=== PATIENT | male | born 1990 | race African-American/Black ===

== ENCOUNTER 2022-11-12 00:14 | Inpatient (IN) | payer OTHER, SELFPAY ==
[2022-11-12 00:30] VITALS: BP 143/87; PULSE 115; RESP 18
--- NOTE | 2022-11-12 01:56 | PC.ADMIT ---
Rodo is a 32 year old male. Admitted from [facility] for SI. Pt is a CV. 5 Minute safety checks with ULB. Pt initially presented to [facility] seeking detox but endorsed active SI with a plan to ingest medications. Pt was formerly at [facility] but was discharged to a custodial where he relapsed. Pt says his primary residence is with a friend out in [facility]. Pt is actively using alcohol, & crack/cocaine. Pt was placed on a CIWA Q4H. Pt has a history of several detox admission in the past. Tox screen positive for THC, Cocaine, & Barbiturates. Pt is a current everyday smoker and has requested nicotine replacement. History of SIB (head banging). Pt does not have a therapist but has a psychiatrist from [facility]. Pt oriented to the unit. Legals signed. Treatment plan & Admission completed.
[2022-11-12 06:00] VITALS: BP 144/82; PULSE 98; RESP 18; TEMP 36.9; O2SAT 95
[2022-11-12 06:49] VITALS: BMI 40.3
[2022-11-12] MEDS: LORazepam 1 MG TABLET PO ×3 (08:38→18:17)
[2022-11-12] MEDS: FLUoxetine HCl Oral Solution 20 MG/5 ML SOLUTION 10 MG PO (08:38)
--- NOTE | 2022-11-12 10:29 | HO.PSYADMNOT ---
HPI Date of Service: 11/12/22 Chief Complaint: SI Sources of Information: patient interviewed, chart reviewed and crisis/core team assessment reviewed HPI Subjective Notes: Rodriguez Warning and Conditional Voluntary Healthcare Proxy: No Guardianship: No Medical Problems Affecting Mental Status: No Narrative: I miss Angie . I want to go back 32 yo male, history of PTSD, ANTONIA, Alcohol Use disorder, recurrent major depression seen in transfer from [facility] for alcohol detox and needing to start over. Reports he has been on the street in [facility], in detox, CSS and homeless in the area and stuck on the streets, running into strangers. Reports his home to be [place], [place]. Reports he has just been approved for [facility] services, being assigned Yadiel Maldonado, a keycase assembler in [facility]. Reports he has been on the wait list for [facility] since May. Wanting to return to where he was raised as this area is not home for him. Reports relapse of alcohol, active detox with SI OTOLARYNGOLOGY NURSE. Wanting assistance to put his life back together and return to school. Past Psychiatric History: IP: [place]- a few times [facility] IP-~5 admits OP: Aurelia Arteaga-prescriber [phone] PHP/IOP: + history Med Trials-Abilify, Prozac, Trazodone, Hydroxyzine Medical Evaluation Reviewed: Hospitalist Tiffanie Pending [facility] Medical History (Updated 11/12/22 @ 14:22 by Mariana Paz, BRIDGETT) Alcohol use disorder, severe, dependence Recurrent major depression-severe Narrative: History of withdrawal seizures Family History: father-alcoholism mother-opiate addiction pt reports no mental illness history Social History: Born in [place], [place]. Pt was premature, born addicted. Placed in foster care and adopted by foster mother who of lung disease when pt was age 10. Pt has 2 older brothers, 1 older sister who currently is in [place] and is fighting cancer. Pt lived with sister after adoptive mother . Pt finished high school and has an AD from [employer] in [place]. He hopes to go to [employer] to continue to work on a BA Hx of playing percussion in bands. No children, no service, no current job-gets nuñez assistance and food stamps Legal: Denies, hx OUI Substance History: Alcohol use since 16 Hx acid, cocaine, crack Hx several detox admits, CSS admits Reports perceptual alterations when in withdrawal. Trauma History: Denies with affirmative history Diagnostics Vital Signs (24Hr): Vital Signs - 24 hr 11/12/22 00:30 11/12/22 06:00 Temperature 98.4 F Pulse Rate 115 H 98 Respiratory Rate 18 18 Blood Pressure 143/87 H 144/82 H Pulse Oximetry 95 Oxygen Delivery Method Room Air Room Air BMI result Body Mass Index 40.3 Meds/Allergies Allergies Allergies Allergy/AdvReac Type Severity Reaction Status Date / Time No Known Allergies Allergy Verified 11/12/22 00:18 Mental Status Exam Mental Status Exam Patient Appearance: Fatigued Patient Orientation: Person, Place, Time and Situation Level of Consciousness: Alert Patient Behavior: Appropriate and Talkative Mood Description: Depressed and Apprehensive Affect Description: Flat Patient Cognition Impaired: No Ability to Follow Directions: Fair Speech Pattern: Spontaneous Speech Memory Description: Intact Hallucinations: None Delusions: Not Present Perceptual Disturbances: Depersonalization and Derealization Thought Process: Rumination Thought Content: positive for Perseveration and positive for Suicidal Ideation Depressive Symptoms: Increased Anxiety, Difficulty Sleeping, Loss of Int. in Activity, Hopelessness, Increased Fatigue, Thoughts of /Suicide and Difficulty Concentrating Judgement: Fair Assessment & Plan Assessment & Plan (1) Recurrent major depression-severe: Status: Acute Code(s): F33.2 - Major depressive disorder, recurrent severe without psychotic features (2) Alcohol use disorder, severe, dependence: Status: Acute Code(s): F10.20 - Alcohol dependence, uncomplicated Plan 32 yo male, transfer from [facility] for detox from alcohol and treatment of depression. Plan: CIWA protocol with Lorazepam MVI, Thiamine, Folic Acid Continue Prozac, Trazodone, Hydroxizine Collateral Contacts Diagnostics Aftercare planning Patient educated on: therapeutic strategies Informed Consent: understands Reason for continued inpatient stay Substantial Risk for: harm to self and rapid decompensation Statement Statement: I have reviewed the history and physical and performed a pertinent examination on my patient. No changes have occurred unless specified. If the History and Physical was not performed prior to admission, the Hospitalist's service will be consulted for completing the admission physical. Time Spent With Patient Time: Total time managing care of this patient today ____ minutes.
--- NOTE | 2022-11-12 13:12 | HO.PM.IMCN ---
History of Present Illness Data of Consult Service Date: 11/12/22 Primary Care Provider: Unknown Physician HPI Reason for consult: Admission H&P Pt is a 32-year-old male with a PMH significant for?alcohol use disorder, the substance abuse disorder, anxiety, and depression who is admitted to [facility] psychiatry unit for increasing depression with SI with plan to overdose on prescription medications. Patient also has been using cocaine, acid and alcohol and actively seeking detox. Medical consult for admission H&P. ?Patient complains actively withdrawing: Cold sweats, nausea, mild tremors, anxiety. Yesterday reports occasional visual hallucinations, but today denies any audio or visual hallucinations. No headache, vomiting. Patient states he has been drinking 6-12 beers and 6+ shots of alcohol daily. Reports a history of alcohol withdrawal seizures when he tried detoxing on his own in the past. Initially presented to [facility] ED and was started on Ativan alcohol withdrawal protocol. Last drink was three days prior on 11/09/2022. Denies chest pain/pressure, palpitations. No SOB. Denies abdominal pain. Labs and EKG from [facility] reviewed, grossly unremarkable. Review of Systems Review of Systems: Cold sweats Nausea Mild tremors Increasing anxiety Visual hallucinations yesterday Denies chest pain/pressure, palpitations No shortness of breath Denies abdominal pain Yes all other systems are reviewed and are negative [facility] Medical History Alcohol use disorder, severe, dependence Recurrent major depression-severe Social History Household Members: Friend(s) Housing: Apartment Do you presently have visiting nurse or other home services: No Patient Tobacco Use Status: Current everyday Tobacco user Tobacco use type: Cigarette Smoked in Last 30 Days: Yes e-Cigarette/Vaping Use: Never Used Patient Interested in Nicotine Replacement: Yes Patient Given Instructions on How to Stop Smoking: Yes Date Education Initiated: 11/12/22 Second Hand Smoke Exposure: Yes Use of substances other than those prescribed or required for medical reasons: Yes Substance Use Type: Crack/Cocaine, Marijuana and Other Substance Use Type Other:: Barbituates Substance Use Frequency: Chronic Longstanding Last Used Substance: Days (ago) Last Used Substance Other:: Cocaine & Marijuana Currently Displaying Signs/Symptoms of Drug Intoxication Withdrawal: No Any prior treatment program specific to substance use: Yes Have you been hit, kicked, punched, or otherwise hurt by someone within the past year? If so, by whom?: No Do you feel safe in your current relationship?: No Current Relationship Is there a partner from a previous relationship who is making you feel unsafe now?: No Are you made to feel afraid or neglected: No Advance Directives: No Advance Directives Information Provided: Yes Advance Directives on File: No Do you have thoughts of harming others: None Do you have a plan to hurt others: No Plan Recently lost weight without trying: No Eating poorly because of decreased appetite: No Nutrition Risks: No Nutritional Risk Poor oral hygiene: No Meds Allergies Allergy/AdvReac Type Severity Reaction Status Date / Time No Known Allergies Allergy Verified 11/12/22 00:18 Active Medications: Current Medications Acetaminophen (Acetaminophen 325 Mg Tablet) 650 mg PO Q6H PRN PRN Reason: Headache/Pain Mild Scale (1-3) Al Hydroxide/Mg Hydroxide (Magnesium Hydrox/Alum Hydrox 30 Ml Oral.Susp) 30 ml PO Q6H PRN PRN Reason: Heartburn/Nausea Fluoxetine HCl (Fluoxetine Hcl Oral Solution 20 Mg/5 Ml Solution) 10 mg PO DAILY [facility] Last Admin: 11/12/22 08:38 Dose: 10 mg Hydroxyzine HCl (Hydroxyzine Hcl 25 Mg Tablet) 25 mg PO Q6H PRN PRN Reason: Anxiety Lorazepam (Lorazepam 0.5 Mg Tablet) 0.5 mg PO Q4H PRN PRN Reason: Alcohol Withdrawal Lorazepam (Lorazepam 1 Mg Tablet) 1 mg PO Q4H PRN PRN Reason: Alcohol Withdrawal Last Admin: 11/12/22 12:47 Dose: 1 mg Lorazepam (Lorazepam 1 Mg Tablet) 2 mg PO Q4H PRN PRN Reason: Alcohol Withdrawal Magnesium Hydroxide (Milk Of Magnesia 30 Ml Oral.Susp) 30 ml PO DAILY PRN PRN Reason: Constipation Trazodone HCl (Trazodone Hcl 50 Mg Tablet) 50 mg PO BEDTIME MRX1 PRN PRN Reason: Insomnia Physical Exam Vital Signs and Narrative: Vital Signs: Last Vital Signs Temp 98.4 F 11/12/22 06:00 Pulse 98 11/12/22 06:00 Resp 18 11/12/22 06:00 BP 144/82 H 11/12/22 06:00 Pulse Ox 95 11/12/22 06:00 O2 Del Method Room Air 11/12/22 06:00 BMI result Body Mass Index 40.3 General: AOx3, no acute distress Resp: CTA bilaterally CVS: S1, S2, RRR GI: +BS, NT, no distention Skin: No rash Neuro: Cranial nerves II-XII grossly intact bilaterally. Motor grossly intact bilaterally. Mild upper extremity tremors. 3/5 strength of upper extremities bilaterally. Extremities: No edema Assessment and Plan (1) Routine history and physical examination of adult: Status: Acute Plan Pt is a 32-year-old male with a PMH significant for?alcohol use disorder, the substance abuse disorder, anxiety, and depression who is admitted to [facility] psychiat[facility] unit for increasing depression with SI with plan to overdose on prescription medications. Patient also has been using cocaine, acid and alcohol and actively seeking detox. Medical consult for admission H&P. Mood disorder Plan as per Psychiatry Alcohol withdrawal Patient drinking heavily for 8+ days before presenting to [facility] emergency department Has history of alcohol withdrawal seizures in the past Was started on Ativan withdrawal protocol at [facility] Currently with mild tremors, nausea, diaphoresis, and visual hallucinations yesterday Continue Ativan protocol for alcohol withdrawal Monitor on CIWA Thank you for allowing us to participate in the care of this patient. Signing off at this time. Please let us know if there are any acute complaints or questions. Time Spent With Patient Time: Total time managing care of this patient today ____ minutes.
[2022-11-12] MEDS: Nicotine 7 MG PATCH.TD24 TRANSDERMA (14:11)
[2022-11-12 18:05] VITALS: BP 134/81; PULSE 105; TEMP 36.1
[2022-11-12] MEDS: traZODone HCL 50 MG TABLET PO (22:20)
[2022-11-12] MEDS: LORazepam 0.5 MG TABLET PO (22:20)
[2022-11-13 08:14] LABS: Alanine Aminotransferase 37 U/L (0-40); Alkaline Phosphatase 54 U/L (39-117); Anion Gap 14 (12-20); Aspartate Amino Transferase 34 U/L (5-37); Bilirubin Total 0.4 mg/dL (0.0-1.0); Blood Urea Nitrogen 12 mg/dL (9-16); Carbon Dioxide 23 mmol/L (22-29); Chloride 105 mmol/L (96-108); Cholesterol 195 mg/dL (<200); Creatinine Clr Calc Pharmacy 155.8; Estimated Glomerular Filt Rate > 60; Glucose Fasting 121 mg/dL (60-99); HDL Cholesterol 51 mg/dL (>40); LDL Cholesterol Calculated 91 mg/dL (<100); Potassium 4.5 mmol/L (3.3-5.1); Sodium 137 mmol/L (135-145); Total Protein 7.2 g/dL (6.5-8.0); Triglycerides 266 mg/dL (<150)
[2022-11-13 08:22] LABS: Estimated Average Glucose 111 mg/dL; Hemoglobin A1c % 5.5 % (<6.0)
[2022-11-13 08:35] LABS: Thyroid Stimulating Hormone 0.78 uIU/mL (0.32-4.0)
[2022-11-13 08:58] LABS: Vitamin B12 583 pg/mL (200-900)
[2022-11-13] MEDS: FLUoxetine HCl 20 MG CAPSULE PO (09:10)
[2022-11-13 09:21] VITALS: BP 147/77; PULSE 111; RESP 18; TEMP 36.6; O2SAT 97
[2022-11-13] MEDS: LORazepam 0.5 MG TABLET PO (09:40)
[2022-11-13] MEDS: hydrOXYzine HCL 25 MG TABLET PO (09:40)
--- NOTE | 2022-11-13 15:59 | P.PNPSI_ITS ---
Subjective Subjective Date of Service: 11/13/22 Reason For Visit: SI Subjective Notes: Conditional Voluntary Interim History: met with patient. Discussed with Nursing. Chart reviewed. On 5 minutes checks as wearing a boot. Sleeping better. Withdrawals under control. Today reports overall mood improving. Positive about being in the hospital and hopeful he can return to the [facility] where he lives with a friend. Has his name on the wait list for [facility] program there. no med concerns. Medication Compliance: Yes Side effects from medications: No Attending Groups: Yes Review of Systems Acute medical concerns: No Review of Systems Review of Systems Yes all other systems are reviewed and are negative Mental Status Exam Mental Status Exam Narrative: Pleasant. Engaged. No withdrawal. Organized. Euthymic. No SI. No HI. No agitation. No psychosis. Insight and judgment good Diagnostics Vital Signs (24Hr): Vital Signs - 24 hr 11/12/22 18:05 11/13/22 09:21 Temperature 96.9 F 97.9 F Pulse Rate 105 H 111 H Respiratory Rate 18 Blood Pressure 134/81 147/77 H Pulse Oximetry 97 Oxygen Delivery Method Room Air BMI result Body Mass Index 40.3 Labs 11/13/22 07:40 Labs: Laboratory Results - last 48 hr 11/13/22 11/13/22 11/13/22 07:40 07:40 07:40 Sodium 137 Potassium 4.5 Chloride 105 Carbon Dioxide 23 Anion Gap 14 BUN 12 Creatinine 0.79 Estim Creat Clear Calc 155.8 Estimated GFR > 60 Fasting Glucose 121 H Estimat Average Glucose 111 Hemoglobin A1c % 5.5 Calcium 9.0 Total Bilirubin 0.4 AST 34 ALT 37 Alkaline Phosphatase 54 Total Protein 7.2 Albumin 4.0 Triglycerides 266 H Cholesterol 195 LDL Cholesterol, Calc 91 HDL Cholesterol 51 Vitamin B12 583 Folate 15.0 TSH 11/13/22 07:40 Sodium Potassium Chloride Carbon Dioxide Anion Gap BUN Creatinine Estim Creat Clear Calc Estimated GFR Fasting Glucose Estimat Average Glucose Hemoglobin A1c % Calcium Total Bilirubin AST ALT Alkaline Phosphatase Total Protein Albumin Triglycerides Cholesterol LDL Cholesterol, Calc HDL Cholesterol Vitamin B12 Folate TSH 0.78 Medications Medications Current Medications Acetaminophen (Acetaminophen 325 Mg Tablet) 650 mg PO Q6H PRN PRN Reason: Headache/Pain Mild Scale (1-3) Al Hydroxide/Mg Hydroxide (Magnesium Hydrox/Alum Hydrox 30 Ml Oral.Susp) 30 ml PO Q6H PRN PRN Reason: Heartburn/Nausea Fluoxetine HCl (Fluoxetine Hcl 20 Mg Capsule) 20 mg PO DAILY [facility] Last Admin: 11/13/22 09:10 Dose: 20 mg Hydroxyzine HCl (Hydroxyzine Hcl 25 Mg Tablet) 25 mg PO Q6H PRN PRN Reason: Anxiety Last Admin: 11/13/22 09:40 Dose: 25 mg Lorazepam (Lorazepam 0.5 Mg Tablet) 0.5 mg PO Q4H PRN PRN Reason: Alcohol Withdrawal Last Admin: 11/13/22 09:40 Dose: 0.5 mg Lorazepam (Lorazepam 1 Mg Tablet) 1 mg PO Q4H PRN PRN Reason: Alcohol Withdrawal Last Admin: 11/12/22 18:17 Dose: 1 mg Lorazepam (Lorazepam 1 Mg Tablet) 2 mg PO Q4H PRN PRN Reason: Alcohol Withdrawal Magnesium Hydroxide (Milk Of Magnesia 30 Ml Oral.Susp) 30 ml PO DAILY PRN PRN Reason: Constipation Nicotine (Nicotine 7 Mg Patch.Td24) 7 mg TRANSDERMA DAILY [facility] Last Admin: 11/13/22 09:11 Dose: Not Given Trazodone HCl (Trazodone Hcl 50 Mg Tablet) 50 mg PO BEDTIME MRX1 PRN PRN Reason: Insomnia Last Admin: 11/12/22 22:20 Dose: 50 mg Allergies Allergies Allergy/AdvReac Type Severity Reaction Status Date / Time No Known Allergies Allergy Verified 11/12/22 00:18 Assessment & Plan Assessment & Plan (1) Recurrent major depression-severe: Status: Acute Code(s): F33.2 - Major depressive disorder, recurrent severe without psychotic features (2) Alcohol use disorder, severe, dependence: Status: Acute Code(s): F10.20 - Alcohol dependence, uncomplicated Plan 32 yo male, transfer from [facility] for detox from alcohol and treatment of depression. Plan: CIWA protocol with Lorazepam MVI, Thiamine, Folic Acid Continue Prozac, Trazodone, Hydroxizine Collateral Contacts Diagnostics Aftercare planning 11/13/2022: No changes Reason for continued inpatient stay Substantial Risk for: inability to function Time Spent With Patient Time: Total time managing care of this patient today ____ minutes.
[2022-11-13] MEDS: LORazepam 1 MG TABLET 2 MG PO (16:31)
[2022-11-13 17:54] VITALS: BP 126/85; PULSE 109; TEMP 36.6; O2SAT 95
[2022-11-14 08:00] VITALS: BP 128/93; PULSE 93; RESP 20; TEMP 36.1; O2SAT 97
[2022-11-14] MEDS: LORazepam 0.5 MG TABLET PO ×2 (08:52→16:55)
[2022-11-14] MEDS: FLUoxetine HCl 20 MG CAPSULE PO (08:52)
[2022-11-14] MEDS: hydrOXYzine HCL 25 MG TABLET PO (12:12)
--- NOTE | 2022-11-14 16:24 | HO.PSYCHPN ---
Subjective Subjective Date of Service: 11/14/22 Reason For Visit: SI Guardianship: No Medical Problems Affecting Mental Status: No Interim History: met with patient. Discussed with Nursing. overall doing well. Participating in groups. Seen playing chess with met peer. No withdrawals. Reports mood improved. Remains hopeful he can return to the [facility] where he lives with a friend and has his name on the wait list for [facility] program there. No med concerns. Medication Compliance: Yes Side effects from medications: No Attending Groups: Yes Review of Systems Review of Systems Yes all other systems are reviewed and are negative Mental Status Exam Mental Status Exam Narrative: Pleasant. Engaged. No withdrawals. Organized. Euthymic. No SI. No HI. No agitation. No psychosis. Insight and judgment good Diagnostics Vital Signs (24Hr): Vital Signs - 24 hr 11/13/22 17:54 11/14/22 08:00 Temperature 97.9 F 97.0 F Pulse Rate 109 H 93 Respiratory Rate 20 Blood Pressure 126/85 128/93 H Pulse Oximetry 95 97 Oxygen Delivery Method Room Air Room Air BMI result Body Mass Index 40.3 Labs 11/13/22 07:40 Labs: Laboratory Results - last 48 hr 11/13/22 11/13/22 11/13/22 07:40 07:40 07:40 Sodium 137 Potassium 4.5 Chloride 105 Carbon Dioxide 23 Anion Gap 14 BUN 12 Creatinine 0.79 Estim Creat Clear Calc 155.8 Estimated GFR > 60 Fasting Glucose 121 H Estimat Average Glucose 111 Hemoglobin A1c % 5.5 Calcium 9.0 Total Bilirubin 0.4 AST 34 ALT 37 Alkaline Phosphatase 54 Total Protein 7.2 Albumin 4.0 Triglycerides 266 H Cholesterol 195 LDL Cholesterol, Calc 91 HDL Cholesterol 51 Vitamin B12 583 Folate 15.0 TSH 11/13/22 07:40 Sodium Potassium Chloride Carbon Dioxide Anion Gap BUN Creatinine Estim Creat Clear Calc Estimated GFR Fasting Glucose Estimat Average Glucose Hemoglobin A1c % Calcium Total Bilirubin AST ALT Alkaline Phosphatase Total Protein Albumin Triglycerides Cholesterol LDL Cholesterol, Calc HDL Cholesterol Vitamin B12 Folate TSH 0.78 Medications Medications Current Medications Acetaminophen (Acetaminophen 325 Mg Tablet) 650 mg PO Q6H PRN PRN Reason: Headache/Pain Mild Scale (1-3) Al Hydroxide/Mg Hydroxide (Magnesium Hydrox/Alum Hydrox 30 Ml Oral.Susp) 30 ml PO Q6H PRN PRN Reason: Heartburn/Nausea Fluoxetine HCl (Fluoxetine Hcl 20 Mg Capsule) 20 mg PO DAILY [facility] Last Admin: 11/14/22 08:52 Dose: 20 mg Hydroxyzine HCl (Hydroxyzine Hcl 25 Mg Tablet) 25 mg PO Q6H PRN PRN Reason: Anxiety Last Admin: 11/14/22 12:12 Dose: 25 mg Lorazepam (Lorazepam 0.5 Mg Tablet) 0.5 mg PO Q4H PRN PRN Reason: Alcohol Withdrawal Last Admin: 11/14/22 08:52 Dose: 0.5 mg Lorazepam (Lorazepam 1 Mg Tablet) 1 mg PO Q4H PRN PRN Reason: Alcohol Withdrawal Last Admin: 11/12/22 18:17 Dose: 1 mg Lorazepam (Lorazepam 1 Mg Tablet) 2 mg PO Q4H PRN PRN Reason: Alcohol Withdrawal Last Admin: 11/13/22 16:31 Dose: 2 mg Magnesium Hydroxide (Milk Of Magnesia 30 Ml Oral.Susp) 30 ml PO DAILY PRN PRN Reason: Constipation Nicotine (Nicotine 7 Mg Patch.Td24) 7 mg TRANSDERMA DAILY [facility] Last Admin: 11/14/22 08:53 Dose: Not Given Trazodone HCl (Trazodone Hcl 50 Mg Tablet) 50 mg PO BEDTIME MRX1 PRN PRN Reason: Insomnia Last Admin: 11/12/22 22:20 Dose: 50 mg Allergies Allergies Allergy/AdvReac Type Severity Reaction Status Date / Time No Known Allergies Allergy Verified 11/12/22 00:18 Assessment & Plan Assessment & Plan (1) Recurrent major depression-severe: Status: Acute Code(s): F33.2 - Major depressive disorder, recurrent severe without psychotic features (2) Alcohol use disorder, severe, dependence: Status: Acute Code(s): F10.20 - Alcohol dependence, uncomplicated Plan 32 yo male, transfer from [facility] for detox from alcohol and treatment of depression. Plan: CIWA protocol with Lorazepam MVI, Thiamine, Folic Acid Continue Prozac, Trazodone, Hydroxizine Collateral Contacts Diagnostics Aftercare planning 11/14/2022: 15 min checks, otherwise no changes Reason for continued inpatient stay Substantial Risk for: med/psych decompensation Time Spent With Patient Time: Total time managing care of this patient today ____ minutes.
[2022-11-14 20:38] VITALS: BP 132/84; PULSE 88; RESP 18; TEMP 36.6; O2SAT 97
[2022-11-15] MEDS: FLUoxetine HCl 20 MG CAPSULE PO (08:40)
[2022-11-15 09:15] VITALS: BP 141/97; PULSE 92; RESP 18; O2SAT 94
[2022-11-15] MEDS: hydrOXYzine HCL 25 MG TABLET PO ×2 (10:42→22:24)
--- NOTE | 2022-11-15 16:26 | HO.PSYCHPN ---
Subjective Subjective Date of Service: 11/15/22 Reason For Visit: SI Subjective Notes: Conditional Voluntary Healthcare Proxy: No Guardianship: No Medical Problems Affecting Mental Status: No Interim History: Pt reports feeling improved. Ready to begin to plan discharge, which will be on 11/17. Pt has not been in contact with [facility] as yet. Team contacted Yadiel Maldonado at [phone]. Pt is in the beginning stages of acceptance-will have his needs assessment scheduled. Reports meds to be without SE Denies current sx of concern. Medication Compliance: Yes Side effects from medications: No Attending Groups: Intermittent Review of Systems Acute medical concerns: No Medical Review of Systems: unchanged Mental Status Exam Mental Status Exam Patient Appearance: Appropriate Patient Orientation: Person, Place, Time and Situation Level of Consciousness: Alert Patient Behavior: Appropriate, Talkative, Cooperative and Good Eye Contact Mood Description: Apprehensive Affect Description: Apprehensive Patient Cognition Impaired: No Ability to Follow Directions: Good Speech Pattern: Spontaneous Speech Memory Description: Intact Hallucinations: None Delusions: Not Present Thought Process: Intact and Goal Oriented Thought Content: positive for Intact and positive for Goal Oriented Depressive Symptoms: Increased Anxiety Judgement: Good Diagnostics Vital Signs (24Hr): Vital Signs - 24 hr 11/14/22 20:38 11/15/22 09:15 Temperature 97.8 F Pulse Rate 88 92 Respiratory Rate 18 18 Blood Pressure 132/84 141/97 H Pulse Oximetry 97 94 Oxygen Delivery Method Room Air Room Air BMI result Body Mass Index 40.3 Labs 11/13/22 07:40 Medications Medications Current Medications Acetaminophen (Acetaminophen 325 Mg Tablet) 650 mg PO Q6H PRN PRN Reason: Headache/Pain Mild Scale (1-3) Al Hydroxide/Mg Hydroxide (Magnesium Hydrox/Alum Hydrox 30 Ml Oral.Susp) 30 ml PO Q6H PRN PRN Reason: Heartburn/Nausea Fluoxetine HCl (Fluoxetine Hcl 20 Mg Capsule) 20 mg PO DAILY GIO Last Admin: 11/15/22 08:40 Dose: 20 mg Hydroxyzine HCl (Hydroxyzine Hcl 25 Mg Tablet) 25 mg PO Q6H PRN PRN Reason: Anxiety Last Admin: 11/15/22 10:42 Dose: 25 mg Lorazepam (Lorazepam 0.5 Mg Tablet) 0.5 mg PO Q4H PRN PRN Reason: Alcohol Withdrawal Last Admin: 11/14/22 16:55 Dose: 0.5 mg Lorazepam (Lorazepam 1 Mg Tablet) 1 mg PO Q4H PRN PRN Reason: Alcohol Withdrawal Last Admin: 11/12/22 18:17 Dose: 1 mg Lorazepam (Lorazepam 1 Mg Tablet) 2 mg PO Q4H PRN PRN Reason: Alcohol Withdrawal Last Admin: 11/13/22 16:31 Dose: 2 mg Magnesium Hydroxide (Milk Of Magnesia 30 Ml Oral.Susp) 30 ml PO DAILY PRN PRN Reason: Constipation Nicotine (Nicotine 7 Mg Patch.Td24) 7 mg TRANSDERMA DAILY GIO Last Admin: 11/15/22 08:41 Dose: Not Given Trazodone HCl (Trazodone Hcl 50 Mg Tablet) 50 mg PO BEDTIME MRX1 PRN PRN Reason: Insomnia Last Admin: 11/12/22 22:20 Dose: 50 mg Allergies Allergies Allergy/AdvReac Type Severity Reaction Status Date / Time No Known Allergies Allergy Verified 11/12/22 00:18 Assessment & Plan Assessment & Plan (1) Recurrent major depression-severe: Status: Acute Code(s): F33.2 - Major depressive disorder, recurrent severe without psychotic features (2) Alcohol use disorder, severe, dependence: Status: Acute Code(s): F10.20 - Alcohol dependence, uncomplicated Plan 32 yo male, transfer from [facility] for detox from alcohol and treatment of depression. Plan: CIWA protocol with Lorazepam MVI, Thiamine, Folic Acid Continue Prozac, Trazodone, Hydroxizine Collateral Contacts Diagnostics Aftercare planning 11/14/2022: 15 min checks, otherwise no changes 11/15/22: Pt reports detox is completed Discharge planned for 11/17. Pt will return to [place] to stay with his friends, sister Patient educated on: therapeutic strategies Informed Consent: understands Reason for continued inpatient stay Substantial Risk for: stable for discharge Time Spent With Patient Time: Total time managing care of this patient today ____ minutes.
[2022-11-15 20:05] VITALS: BP 130/74; PULSE 99; TEMP 36.2
[2022-11-15] MEDS: traZODone HCL 50 MG TABLET PO (22:24)
[2022-11-16 06:00] VITALS: RESP 18
[2022-11-16] MEDS: FLUoxetine HCl 20 MG CAPSULE PO (08:48)
--- NOTE | 2022-11-16 17:48 | HO.PSYCHPN ---
Subjective Subjective Date of Service: 11/16/22 Reason For Visit: SI Subjective Notes: Conditional Voluntary Healthcare Proxy: No Guardianship: No Medical Problems Affecting Mental Status: No Interim History: Pt resting when we met. States he feels prepared to discharge 11/17. He is making arrangements to go to DTA and Medicaid office prior to leaving for [place]. He presents organized, goal oriented and making arrangements to take care of necessary tasks prior to leaving the area. Medication Compliance: Yes Side effects from medications: No Attending Groups: No Review of Systems Acute medical concerns: No Medical Review of Systems: unchanged Mental Status Exam Mental Status Exam Patient Appearance: Appropriate Patient Orientation: Person, Place, Time and Situation Level of Consciousness: Alert Patient Behavior: Appropriate, Talkative, Cooperative and Good Eye Contact Mood Description: Apprehensive Affect Description: Apprehensive Patient Cognition Impaired: No Ability to Follow Directions: Good Speech Pattern: Spontaneous Speech Memory Description: Intact Hallucinations: None Delusions: Not Present Thought Process: Intact and Goal Oriented Thought Content: positive for Intact and positive for Goal Oriented Depressive Symptoms: Increased Anxiety Judgement: Good Diagnostics Vital Signs (24Hr): Vital Signs - 24 hr 11/15/22 20:05 11/16/22 06:00 Temperature 97.2 F Pulse Rate 99 Respiratory Rate 18 Blood Pressure 130/74 BMI result Body Mass Index 40.3 Labs 11/13/22 07:40 Medications Medications Current Medications Acetaminophen (Acetaminophen 325 Mg Tablet) 650 mg PO Q6H PRN PRN Reason: Headache/Pain Mild Scale (1-3) Al Hydroxide/Mg Hydroxide (Magnesium Hydrox/Alum Hydrox 30 Ml Oral.Susp) 30 ml PO Q6H PRN PRN Reason: Heartburn/Nausea Fluoxetine HCl (Fluoxetine Hcl 20 Mg Capsule) 20 mg PO DAILY GIO Last Admin: 11/16/22 08:48 Dose: 20 mg Hydroxyzine HCl (Hydroxyzine Hcl 25 Mg Tablet) 25 mg PO Q6H PRN PRN Reason: Anxiety Last Admin: 11/15/22 22:24 Dose: 25 mg Lorazepam (Lorazepam 0.5 Mg Tablet) 0.5 mg PO Q4H PRN PRN Reason: Alcohol Withdrawal Last Admin: 11/14/22 16:55 Dose: 0.5 mg Lorazepam (Lorazepam 1 Mg Tablet) 1 mg PO Q4H PRN PRN Reason: Alcohol Withdrawal Last Admin: 11/12/22 18:17 Dose: 1 mg Lorazepam (Lorazepam 1 Mg Tablet) 2 mg PO Q4H PRN PRN Reason: Alcohol Withdrawal Last Admin: 11/13/22 16:31 Dose: 2 mg Magnesium Hydroxide (Milk Of Magnesia 30 Ml Oral.Susp) 30 ml PO DAILY PRN PRN Reason: Constipation Nicotine (Nicotine 7 Mg Patch.Td24) 7 mg TRANSDERMA DAILY GIO Last Admin: 11/16/22 08:53 Dose: Not Given Trazodone HCl (Trazodone Hcl 50 Mg Tablet) 50 mg PO BEDTIME MRX1 PRN PRN Reason: Insomnia Last Admin: 11/15/22 22:24 Dose: 50 mg Allergies Allergies Allergy/AdvReac Type Severity Reaction Status Date / Time No Known Allergies Allergy Verified 11/12/22 00:18 Assessment & Plan Assessment & Plan (1) Recurrent major depression-severe: Status: Acute Code(s): F33.2 - Major depressive disorder, recurrent severe without psychotic features (2) Alcohol use disorder, severe, dependence: Status: Acute Code(s): F10.20 - Alcohol dependence, uncomplicated Plan 32 yo male, transfer from [facility] for detox from alcohol and treatment of depression. Plan: CIWA protocol with Lorazepam MVI, Thiamine, Folic Acid Continue Prozac, Trazodone, Hydroxizine Collateral Contacts Diagnostics Aftercare planning 11/14/2022: 15 min checks, otherwise no changes 11/15/22: Pt reports detox is completed Discharge planned for 11/17. Pt will return to [place] to stay with his friends, sister 11/16/22: Discharge 11/17/22. Patient educated on: therapeutic strategies Informed Consent: understands Reason for continued inpatient stay Substantial Risk for: stable for discharge Time Spent With Patient Time: Total time managing care of this patient today ____ minutes.
[2022-11-16 21:15] VITALS: BP 122/69; PULSE 83; TEMP 36.6
[2022-11-16] MEDS: traZODone HCL 50 MG TABLET PO (21:34)
[2022-11-17 08:00] VITALS: BP 137/89; PULSE 92; RESP 18; TEMP 36.4; O2SAT 96
[2022-11-17] MEDS: FLUoxetine HCl 20 MG CAPSULE PO (08:58)
--- NOTE | 2022-11-17 18:04 | P.DS_ITS ---
DS: Providers Provider Date of Service: 11/17/22 Date of admission: 11/12/22 00:14 Date of discharge: 11/17/22 Primary care physician: Unknown Physician Admitting clinician: Mariana Paz Attending physician on admission: Joon Forman Consults: 11/12/22 00:18 Consult to Hospitalist Routine Comment: Consulting Provider: Hospitalist Reason For Exam: Direct admission, on Attending physician on discharge: oJon Forman Discharging clinician: Mariana Paz DS: Diagnosis Discharge Diagnosis (1) Recurrent major depression-severe: Status: Acute (2) Alcohol use disorder, severe, dependence: Status: Acute DS: Medications Discharge Medications Home Medications: Previous Rx's Medication Instructions Recorded fluoxetine 20 mg capsule 20 mg PO DAILY #30 caps 11/16/22 hydroxyzine HCl 25 mg tablet 25 mg PO Q6H PRN Anxiety #60 tabs 11/16/22 nicotine 7 mg/24 hr daily 7 mg transdermal DAILY #30 ea 11/16/22 transdermal patch trazodone 50 mg tablet 50 mg PO BEDTIME MRX1 PRN Insomnia 11/16/22 #30 tabs Mental Status Exam Mental Status Exam Patient Appearance: Appropriate Patient Orientation: Person, Place, Time and Situation Level of Consciousness: Alert Patient Behavior: Appropriate, Talkative, Cooperative and Good Eye Contact Mood Description: Apprehensive Affect Description: Apprehensive Patient Cognition Impaired: No Ability to Follow Directions: Good Speech Pattern: Spontaneous Speech Memory Description: Intact Hallucinations: None Delusions: Not Present Thought Process: Intact and Goal Oriented Thought Content: positive for Intact and positive for Goal Oriented Depressive Symptoms: Increased Anxiety Judgement: Good Data Data Completed and Pending Completed studies during hospitalization [Text1]: 11/13/22 11/13/22 11/13/22 07:40 07:40 07:40 Sodium 137 Potassium 4.5 Chloride 105 Carbon Dioxide 23 Anion Gap 14 BUN 12 Creatinine 0.79 Estim Creat Clear Calc 155.8 Estimated GFR > 60 Fasting Glucose 121 H Estimat Average Glucose 111 Hemoglobin A1c % 5.5 Calcium 9.0 Total Bilirubin 0.4 AST 34 ALT 37 Alkaline Phosphatase 54 Total Protein 7.2 Albumin 4.0 Triglycerides 266 H Cholesterol 195 LDL Cholesterol, Calc 91 HDL Cholesterol 51 Vitamin B12 583 Folate 15.0 TSH 11/13/22 07:40 Sodium Potassium Chloride Carbon Dioxide Anion Gap BUN Creatinine Estim Creat Clear Calc Estimated GFR Fasting Glucose Estimat Average Glucose Hemoglobin A1c % Calcium Total Bilirubin AST ALT Alkaline Phosphatase Total Protein Albumin Triglycerides Cholesterol LDL Cholesterol, Calc HDL Cholesterol Vitamin B12 Folate TSH 0.78 DS: Summary Hospital Course Hospital Course: Admission to adult psychiatry for exacerbation of alcohol use disorder, depression, PTSD with SI in the context of homelessness. Pt reported being from [place], [place] and traveling in this area for a time, looking to return to [place]. He had just been approved for [facility] services in [facility] and has a pending application to [facility] in [place]. Pt completed detox. Medications were assessed. Prozac was initiated and care was coordinated to assist pt in a return to [place] via bus. Time spent discussing smoking cessation with patient: 3 to 10 minutes Status at Discharge Functional status at discharge: independent ambulation Overall status at discharge: patient is progressing back to baseline Time Spent with Patient Time attestation: Total time managing care of this patient today ____ minutes. Time spent: Greater than 30 minutes Discharge Plan Discharge Anticipated Discharge Date/Time: 11/17/22 12:00 Patient Disposition: Home, Self-Care Discharge Diagnosis: Recurrent major depression, severe Alcohol use disorder, severe, dependence Referrals: Aurelia Arteaga: [facility] outpatient mental health clinic [Other] - 11/19/22 1:30 pm (Follow-up appointment with psychiatric medication provider Appointment is in person at [facility] outpatient clinic) [facility] [Other] - 1 Week (Senior Care resource information [facility] Glenis Chapman FNP [Nurse Practitioner] - 11/23/22 4:00 pm (in office) Discharge Medications: New trazodone 50 mg Tablet 50 mg PO BEDTIME MRX1 PRN (Reason: Insomnia) Qty: 30 0RF hydroxyzine HCl 25 mg Tablet 25 mg PO Q6H PRN (Reason: Anxiety) Qty: 60 0RF fluoxetine 20 mg Capsule 20 mg PO DAILY Qty: 30 0RF nicotine 7 mg/24 hr Patch 24 Hour 7 mg transdermal DAILY Qty: 30 0RF No Action fluoxetine 20 mg capsule 20 mg PO DAILY Qty: 30 0RF hydroxyzine HCl 25 mg tablet 25 mg PO Q6H PRN (Reason: anxiety) Qty: 60 0RF trazodone 50 mg tablet 50 mg PO BEDTIME PRN (Reason: sleep) Qty: 30 0RF Discharge Orders: Discharge Order (Routine); Ordered 11/16/22 Ordered By: Mariana Paz Diet: Advance to usual diet Activity on Discharge: As tolerated Stand Alone Forms: Patient Portal Discharge page, Community Support Care Plan Goals: Mood and Behavioral Stabilization Work on Sobriety Health Concerns: Mood and Behavioral Stabilization Sobriety Plan of Treatment: Attend scheduled appointments Take medications as directed Assessment: Pt interviewed prior to discharge and found to be fully oriented and without SI/HI. Pt has insight and demonstrates good judgment in terms of wanting to pursue treatment. Pt is not in imminent risk of harm to self or others and has a safety plan that includes presenting to the closest ER or calling 911 if feeling unsafe. Pt has been observed closely by nursing and unit staff throughout admission. Pt has not engaged in any behaviors that suggest dangerousness to self or others and has demonstrated appropriate behaviors and impulse control. Discharge Date/Time: 11/17/22 11:20
== END 2022-11-17 11:20 | disposition home or self-care (01) | DRG 751 ==
PROVIDERS: Admitting Provider Psychiatry & Neurology Psychiatry; Visit Provider Clinical Nurse Specialist Psychiatric/Mental Health, Adult
DX: F33.2 Major depressive disorder, recurrent severe without psychotic features (principal); R45.851 Suicidal ideations; F10.239 Alcohol dependence with withdrawal, unspecified; F17.210 Nicotine dependence, cigarettes, uncomplicated; Z71.6 Tobacco abuse counseling; Z79.899 Other long term (current) drug therapy
CPT/HCPCS: 36415; 80053; 80061; 82607; 82746; 83036; 84443

== ENCOUNTER → 2022-11-12 00:14 | Outpatient (BNV) | payer OTHER, SELFPAY | PROVIDERS: Admitting Provider Psychiatry & Neurology Psychiatry; Visit Provider Student in an Organized Health Care Education/Training Program | DX: Z02.2 Encounter for examination for admission to residential institution (principal) | CPT/HCPCS: 99429 ==

== ENCOUNTER → 2022-11-12 00:14 | Outpatient (BNV) | payer OTHER, SELFPAY | PROVIDERS: Admitting Provider Psychiatry & Neurology Psychiatry; Visit Provider Clinical Nurse Specialist Psychiatric/Mental Health, Adult | DX: F33.2 Major depressive disorder, recurrent severe without psychotic features (principal); F10.20 Alcohol dependence, uncomplicated | CPT/HCPCS: 90792; 99231; 99232; 99239 ==

== ENCOUNTER 2022-11-17 23:43 | Emergency (ER) | payer OTHER, SELFPAY ==
--- NOTE | 2022-11-17 | ECG_ITS ---
Test Reason : CHEST PAIN Blood Pressure : / mmHG Vent. Rate : 100 BPM Atrial Rate : 100 BPM P-R Int : 162 ms QRS Dur : 096 ms QT Int : 356 ms P-R-T Axes : 070 004 036 degrees QTc Int : 459 ms Normal sinus rhythm Possible Left atrial enlargement Borderline ECG No previous ECGs available Referred By: Generic ED Physician Electronically Signed By:MABLE COTTO
[2022-11-17 23:47] VITALS: BP 156/97; PULSE 106; RESP 18; TEMP 36.5; O2SAT 96; BMI 43.3
[2022-11-18 00:32] LABS: MANUAL DIFF FLAG NO
[2022-11-18 00:33] LABS: Basophils Absolute Auto 0.1 X10*3/uL (0.0-0.2); Basophils Percent Auto 0.7 % (0-2); Hematocrit 41.8 % (42.0-52.0); Hemoglobin 14.3 g/dl (14.0-18.0); Imm Gran Abs Auto 0.02 X10*3/uL (0.00-0.03); Imm Gran Pct Auto 0.2 % (0.0-0.4); Lymphocytes Absolute Auto 2.1 X10*3/uL (1.2-4.9); Mean Corpuscular HGB Conc 34.2 g/dl (31.0-36.0); Mean Corpuscular Hemoglobin 28.7 pg (27.0-33.0); Mean Corpuscular Volume 83.8 fL (80.0-98.0); Mean Platelet Volume 9.7 fL (9.4-12.4); Monocytes Absolute Auto 1.4 X10*3/uL (0.1-1.2); Monocytes Percent Auto 16.3 % (2-11); Neutrophils Absolute Auto 4.9 x10*3/uL (2.0-8.3); Neutrophils Percent Auto 57.8 % (45-73); Platelet Count 247 X10*3/uL (160-400); Red Blood Count 4.99 X10*6/uL (4.60-5.80); Red Cell Distribution Width 14.4 % (11.0-16.0); White Blood Count 8.5 X10*3/uL (4.8-10.8)
[2022-11-18 00:34] LABS: Appearance Urine Clear; Color Urine Yellow; Glucose Urine UA Negative (Negative); Leukocyte Esterase Urine Negative (Negative); Nitrite Urine Negative (Negative); PH 6.5 (5.0-9.0); Urine Blood Negative (Negative); Urine Ketones Negative (Negative); Urine Protein Negative (Neg-Trace)
--- OUTSIDE RECORDS SUMMARY | 2022-11-18 00:35 | XMS_ITS | Continuity of Care Document ---
Author Name Unknown Organization [facility] Address [address] [place] [address]- Care Team Providers Care Retail Support Associate Name Role Phone Not on Staff, PCP Primary Care Physician Unavail able Encounter [facility] Date(s): 10/31/22 - 11/01/[address] [address]- Encounter Diagnosis Depression(Final) - 10/31/22 Discharge Disposition: A-D/C Home Attending Physician: Sylvia Cazares MD Admitting Physician: Sylvia Cazares MD Referring Physician: Not on Staff, Referring MD Allergies, Adverse Reactions, Alerts No Known Medication Allergies Medications FLUoxetine 40 mg oral capsule = 40 mg, By Mouth, Daily, # 30 capsule, 0 Refills, Maintenance, 10/26/22 11:23:00 EDT, Capsule, [facility]-, Partial fill upon patient request if the prescription is for a schedule II opioid drug., 168, cm, 10/26/22 11:04:00 ED... Start Date: 10/26/22 Status: Ordered hydrOXYzine hydrochloride 25 mg oral tablet = 25 mg, By Mouth, 3 times a day, PRN Anxiety, # 45 capsule, 1 Refills, Maintenance, 10/26/22 11:24:00 EDT, Tablet, [facility]-, Partial fill upon patient request if the prescription is for a schedule II opioid drug., 168, cm,... Start Date: 10/26/22 Status: Ordered traZODone 100 mg oral tablet 100 mg, By Mouth, Daily at bedtime, # 30 tablet, Refills 0, Tot. Refills 0, Maintenance, 10/26/22 11:22:00 EDT, Route to Pharmacy Electronically, [facility], Partial fill upon patient request if the prescription is for a sched... Start Date: 10/26/22 Status: Ordered Problem List Condition Confirmation Course Effective Dates Status Health St atus Informant Obese class II Confirmed Active Vital Signs Most recent to oldest [Reference Range]: 1 2 3 4 Height 168 cm (11/01/22 7:49 AM) 168 cm (10/31/22 11:20 PM) 168 cm (10/31/22 12:19 PM) 168 cm (10/31/22 12:19 PM) Weight 109.09 kg (11/01/22 7:49 AM) 109.09 kg (10/31/22 11:20 PM) 109.09 kg (10/31/22 12:19 PM) 109.09 kg (10/31/22 12:19 PM) Oxygen Saturation [94-100 %] 96 % (11/01/22 7:49 AM) 96 % (10/31/22 11:20 PM) 96 % (10/31/22 12:14 PM) Pulse Rate [55-90 bpm] 88 bpm (11/01/22 7:49 AM) 71 bpm (10/31/22 11:20 PM) 119 bpm *H* (10/31/22 12:14 PM) Body Mass Index [18.5-24.99 kg/m2] 38.65 kg/m2 *>HHI* (11/01/22 7:49 AM) 38.65 kg/m2 *>HHI* (10/31/22 11:20 PM) 38.65 kg/m2 *>HHI* (10/31/22 12:19 PM) Blood Pressure [90-138/55-84 mm Hg] 172/108mm Hg *H* (11/01/22 7:49 AM) 147/98mm Hg *H* (10/31/22 11:20 PM) 166/101mm Hg *H* (10/31/22 12:14 PM) Respiratory Rate [16-30 br/min] 20 br/min (11/01/22 7:49 AM) 17 br/min (11/01/22 5:19 AM) 18 br/min (11/01/22 3:34 AM) Temperature [96.8-100.4 DegF] 97.8 DegF (11/01/22 7:49 AM) 97 DegF (10/31/22 11:20 PM) 97.3 DegF (10/31/22 12:14 PM) Mode of Delivery (Oxygen) Room air (11/01/22 7:49 AM) Nasal cannula (10/31/22 11:20 PM) Room air (10/31/22 12:14 PM) Blood pressure sites Arm, left (11/01/22 7:49 AM) Arm, left (10/31/22 11:20 PM) Arm, left (10/31/22 12:14 PM) Temperature Route Temporal (11/01/22 7:49 AM) Temporal (10/31/22 11:20 PM) Temporal (10/31/22 12:14 PM) Dry Weight 109.09 kg (11/01/22 7:49 AM) 109.09 kg (10/31/22 11:20 PM) 109.09 kg (10/31/22 12:19 PM) Weight Obtained Via Patient/family stated (10/31/22 12:19 PM) Patient/family stated (10/31/22 12:14 PM) Social History Social History Type Response Smoking Status 10 or more cigarette s (1/2 pack or more)/day in last 30 days entered on: 12/31/19 Sex Note * Sylvia Cazares MD: PERFORM Event Display: Patient Education Leaflets Authored Date: [id number] Drug Abuse ?? [id number] Drug Abuse Use and abuse of drugs or medicines may lead to addiction or dependence. You may hear drug abuse oraddiction called substance use disorder (EUSEBIA). Examples of illegal drugs include amphetamines (alsoknown as speed or crank), methamphetamines (meth), cocaine, heroin, bath salts, and hallucinogens (such as MDMA, ecstasy, PCP, mescaline, and LSD). Xylazine is a sedative and pain reliever approved only for animals. It's not approved or safe for people. It's known by the street name tranq. Xylazine has been found in street drugs, especially heroin and fentanyl. It has been linked to overdoses and . Severe side effects from xylazine include slow heart beat and breathing, low blood pressure, skin sores, and coma. In some states, marijuana is an illegal drug. Medicines include prescription medicines, sedatives, and sleeping pills. Once addiction or dependence happens, you are at greater risk for the problems below. Social and personal problems ??? Craving for the drug and not being able to stop using even though you think you want to stop (psychological addiction) ??? Drug withdrawal symptoms if you stop takingthe drug (physical dependence) ??? Loss of friends and family ??? School or work problems ??? Arrest, conviction, and half-way sentence for possession of an illegal substance or for driving under the infl uence ?? Health problems ??? Stroke, heart attack, heart failure, and kidney failure ??? Accidental injuriesto yourself or others while you are under the influence of a drug (in a car or at home) ??? HIV infection. This is a much greater risk if you use IV drugs. ??? Skin infections ??? Other sexually transmitted infections (STIs), such as herpes, chlamydia, and gonorrhea ??? Severe and fatal infection of the heart valves if you use IV drugs ??? Hepatitis B or C ??? Dementia, mood disorders, persistenthallucinations (particularly with hallucinogens) ??? Dental problems from methamphetamine abuse ??? from overdose ?? Home care The following suggestions can help you care for yourself at home: ??? Admit you have a drug problem. Ask for help from your family and close friends. ??? Seek professional help. This could be one-on-one therapy or counseling. There are also outpatient, inpatient, and residential drug treatment programs. ??? Join a self-help group for drug abuse. ??? Stay away from friends who abuse drugs or temptyou to continue abusing drugs. ??? Eat a balanced diet and start a regular exercise program. ?? Follow-up care Follow up with your healthcare provider, or as advised. Contact 1 of the resources below for help: ??? Substance Abuse and Mental Health Services Administration (SAMHSA) at www.samhsa.gov/findtreatment ??? National [place] on Alcoholism and Drug Dependence at www.ncadd.org ??? Narcotics Anonymous at www.na.org ?? Call 911 Call 911 right away if any of these occur: ??? Seizure ??? Hard time breathing or slow, irregular breathing ??? Chest pain ??? Sudden weakness on 1 side of your body or sudden trouble speaking ??? Very drowsy or trouble waking up ??? Fainting or loss of consciousness ??? Fast heart rate ??? Very slow heart rate ?? When to get medical care Call your healthcare provider if any of these occur: ??? Agitation, anxiety, or unable to sleep ???Unintended weight loss. This means more than 10 to 15 pounds over 3 months. ??? Fever of 100.4??F (38??C) or higher, or as advised by your provider ??? Shortness of breath ??? Cough with colored sputum ??? Redness, swelling, or tenderness at an injection site ??? You think counseling or drug rehabilitation services are needed to prevent additional drug use ?? Last Reviewed Date: 2021 ?? 5168-3567 [employer]. All rights reserved. This information is not intended as a substitute for professional medical care. Always follow your healthcare professional's instructions. ?? Patient Care team information Care Team Personnel Name: Not on Staff, PCP Position: [facility] Physician (General Medicine) Member Role: PCP Name: Fiona Odonnell RN Position: [facility] RN Member Role: Primary Care Nurse Name: Diony Santana RN Position: [facility] RN Member Role: Primary Care Nurse Name: Sylvia Cazares MD Position: [facility] ED Medicine MD Member Role: Admitting Physician Address: Address: [address] [place] [address] Name: Yajaira Castano RN Position: [facility] ED RN W/OE and Tasks Member Role: Patient Care Provider
--- OUTSIDE RECORDS SUMMARY | 2022-11-18 00:35 | XMS_ITS | Continuity of Care Document ---
Author Name Unknown Organization [facility] Address [address] [place] [address]- Care Team Providers Care Personalization Specialist Name Role Phone Not on Staff, PCP Primary Care Physician Unavail able Encounter [facility] Date(s): 11/08/22 - 11/08/22 [facility] [address] [place] [address]- Encounter Diagnosis Alcohol withdrawal(Final) - 11/08/22 Discharge Disposition: A-D/C Home Attending Physician: Daniel Parker MD Admitting Physician: Daniel Parker MD Referring Physician: Not on Staff, Referring MD Allergies, Adverse Reactions, Alerts No Known Medication Allergies Medications FLUoxetine 40 mg oral capsule = 40 mg, By Mouth, Daily, # 30 capsule, 0 Refills, Maintenance, 10/26/22 11:23:00 EDT, Capsule, [facility]-, Partial fill upon patient request if the prescription is for a schedule II opioid drug., 168, cm, 10/26/22 11:04:00 ED... Start Date: 10/26/22 Status: Ordered hydrOXYzine hydrochloride 25 mg oral tablet = 25 mg, By Mouth, 3 times a day, PRN Anxiety, # 45 capsule, 1 Refills, Maintenance, 10/26/22 11:24:00 EDT, Tablet, [facility]-, Partial fill upon patient request if the prescription is for a schedule II opioid drug., 168, cm,... Start Date: 10/26/22 Status: Ordered traZODone 100 mg oral tablet 100 mg, By Mouth, Daily at bedtime, # 30 tablet, Refills 0, Tot. Refills 0, Maintenance, 10/26/22 11:22:00 EDT, Route to Pharmacy Electronically, [facility]-, Partial fill upon patient request if the prescription is for a sched... Start Date: 10/26/22 Status: Ordered Problem List Condition Confirmation Course Effective Dates Status Health St atus Informant Obese class II Confirmed Active Vital Signs Most recent to oldest [Reference Range]: 1 2 Height 166 cm (11/08/22 1:11 PM) 166 cm (11/08/22 1:10 PM) Weight 109.3 kg (11/08/22 1:11 PM) 109.3 kg (11/08/22 1:10 PM) Oxygen Saturation [94-100 %] 98 % (11/08/22 5:09 PM) 95 % (11/08/22 1:10 PM) Pulse Rate [55-90 bpm] 109 bpm *H* (11/08/22 5:09 PM) 105 bpm *H* (11/08/22 1:10 PM) Body Mass Index [18.5-24.99 kg/m2] 39.66 kg/m2 *>HHI* (11/08/22 1:10 PM) Blood Pressure [90-138/55-84 mm Hg] 153/ 95mm Hg *H* (11/08/22 5:09 PM) 156/83mm Hg *H* (11/08/22 1:10 PM) Respiratory Rate [16-30 br/min] 18 br/mi n (11/08/22 5:09 PM) 20 br/min (11/08/22 1:10 PM) Temperature [96.8-100.4 DegF] 98.5 DegF (11/08/22 5:09 PM) 99.1 DegF (11/08/22 1:10 PM) Mode of Delivery (Oxygen) Room air (11/08/22 5:09 PM) Room air (11/08/22 1:10 PM) Blood pressure sites Arm, right (11/08/22 5:09 PM) Arm, right (11/08/22 1:10 PM) Temperature Route Oral (11/08/22 5:09 PM) Oral (11/08/22 1:10 PM) Dry Weight 109.3 kg (11/08/22 1:11 PM) 109.3 kg (11/08/22 1:10 PM) Weight Obtained Via Patient/family state d (11/08/22 1:10 PM) Social History Social History Type Response Smoking Status 10 or more cigarette s (1/2 pack or more)/day in last 30 days entered on: 12/31/19 Sex Note * Prudence Cha MD: PERFORM Event Display: Patient Education Leaflets Authored Date: [id number] Harm Reduction Discharge Instructions ?? 152 ? [facility] If you are unsure or not ready to start taking medications like buprenorphine (Suboxone), or want to speak confidentially to a trained medical, peer or monomer recovery operator, your local [facility] offers the following services: ?? Drug Use Counseling Syringe Access and Disposal Overdose Prevention and Narcan Access Testing for HIV, STD???s and Hepatitis C Safer Drug Use and Safer Sex Supplies ?? Walk into any [facility] location during business hours or for mobile health delivery, call ?? [address] [address] Hours: Tuesday-Tuesday 8AM-4PM ?? [place] [address] [place] [address] Hours: Tuesday-Tuesday 8AM-4PM ?? [address] [address] Hours: Tuesday-Tuesday 8AM-4PM ?? [address], [address] [place] [address] Hours: Tuesday-Tuesday 9AM-5PM ?? [place] [address] [facility] [place] [address] Hours: Tuesday-Tuesday 8:30AM-4:30PM ? Tips to Stay Healthy for People who Inject Drugs .?? You have been seen at the [facility] Emergency Department for a problem related to Injection Drug Use. Risks of injecting drugs include:? Damage to blood vessels ??? Painful skin infections like cellulitis and abscesses ??? Dangerousbloodstream infections that can damage your organs, including your heart and spinal cord ??? Becoming infected with a virus including Hepatitis C and HIV (the virus that causes AIDS)? Overdose and ?? The best way to lower the risks of injecting drugs is to begin treatment with medications like Buprenorphine (Suboxone), Methadone or Naltrexone. If you are interested in treatment, we have phone numbers of medical billing coordinator that can help you start or continue treatment (below).?? However, if you are not yet ready to stop injecting drugs, there are things you can do to keep yourself healthy. Below are tips to help you stay healthy and decrease the dangers of injecting drugs. ?? 1. Try to use a new needle every time you inject. NEVER share needles. Viruses like Hepatitis can live on used needles for hours to days. Reusing the same needle will dull the needle tip, leading to trauma to the blood vessels and more painful injecting.? Never share needles ??? Try to use a new, unused needle every time you inject o You can get free unused needles at [facility] Syringe Access Sites o Many drug stores, like [employer] and [employer], sell unused insulin needles . ??? Do not sharpen an old needle ??? it creates barbs that can damage your skin and blood vessels. ??? If you must share a needle, cleaning it before use may reduce the risk ofinfection. o Flush it with sterile water. If you don???t have sterile water, use cold tap water. o Fill the syringe with household bleach. Shake for 2 minutes. If you don???t have bleach, you can userubbing alcohol or hydrogen peroxide o Flush it with water again 1. Use sterile water to mix your drugs . Tap water contains bacteria that can cause an infection when injected. ??? Use sterile water or sterile saline if possible. o You can get sterile water at [facility] Syringe Services Sites o Many drug stores, like [employer] and [employer], sell sterile water. ??? If you do not have sterile water, you can boil water for 10 minutes. Let the water cool before injecting. 1. Wipe your skin with an alcohol pad before you inject Even with unused needles and sterile water, bacteria on your skin can be pushed into your blood when injecting. ??? Wash your hands with soap and water before injecting. ??? When you are ready to inject, rub your skin with an alcohol wipe to kill the bacteria on your skin. 1. Rotate Injection Sites Using the same site many times can cause scarring, bruising and infection. ??? Rotate injection sites, using different sides and different veins. ??? If you are using the same vein, inject at least one inch away from the previous site. ??? Avoid the veins in your neck, groin and feet. 1. Reduce your risk of overdose Most heroin contains fentanyl, a powerful drug that causes many deaths. Here are best practices youcan do to reduce your risk of dying from an overdose ??? Whenever possible, use with a trusted friend or partner. Take turns injecting ??? Narcan can save your life if you overdose. Have Naloxone (Narcan) at arm???s reach when you inject. Make sure your partner knows where the Narcan is and how to use it in case of an overdose o You can get Narcan for free at [facility] Syringe Services Sites o Drug stores, like [employer] and [employer], provide Narcan without a prescription ??? Do not mix heroin with alcohol or other drugs. ??? If you have not used drugsin a long time, or if you are buying from a new dealer, your body may not be used to the strength of the drug. You should: o Start with a lower dose. o Consider using a ???aide shot?? , injecting asmall amount first to make sure the drug is not too strong, before you inject your regular dose . ??? If you must use alone, find a place where someone would see you if you had an overdose. Do not use in a locked bathroom. ?6. If you see an overdose: Call 911! Signs of overdose include slow breathing, blue face or lips, or if you are unable to wake the person. If you suspect an overdose ??? CALL 911 immediately! ??? Give Narcan if you have it ??? DO NOT try to inject salt water, inject stimulant drugs, or put the victim in a cold-water bath. ? [employer] Syringe Service Sites are an important resource ??? [employer] provides free supplies for people who inject drugs, including: Naloxone (NARCAN), unused needles, sterile water, alcohol pads, cookers and tourniquets. ??? They will help teach you how to inject safely to reduce the risk of complications ??? They can help you find treatment, support and resources to improve your life. ?? [employer] Syringe Service Sites in [facility] ? [address] [place], [place] ?? [facility] [facility] extension 1 ? [facility] Emergency Department can help! The Emergency Department at [facility] has physicians, social workers, nurses, mental health and financial counselors with experience in treating patients with opioid use disorder. ? Between 9:00am-4:00pm call [phone] to speak to the Follow Up Nurse. ??? From 4:00pm-9:00am call [phone] to speak to an emergency department bank representative. ??? If you feel unsafe, are ready fortreatment immediately, or have any emergency, we are available 11/10 to help you. ?? RESOURCES TO TREAT OPIOID USE DISORDER ? [facility] Syringe Services in [facility] If you are not ready to stop using injection drugs, [employer] provides unused needles, Narcan, and education on how to prevent overdose and infection. ? [facility] [facility] [address] [place], [place] ?? [employer] [facility] [address] [facility] extension 1 ?? [facility] Health Centers that offer Suboxone If you have a primary doctor in any of the following locations, they will be able to help you continue buprenorphine (Suboxone) ? [facility] [address] [place] [address] ?? [facility] [address] [place] [address] ?? [facility] [address] [place] [address] Direct Line: [phone] ?? [facility] [address] [place] [address] ?? [facility] [address] [place] [address] ?? [facility] [address] [place] [address] ?? Private Suboxone Clinics Standalone Private clinics willing to accept new patients. Of note, the Suboxone clinics below usually require a photo ID and Insurance ? [facility] [address] [facility] [address] P: [phone] ?? [facility] [address] [place] [address] ?? [facility] [address] [facility] [address], [place] [address] Central Line: [phone] ?? [facility] [address] [place] [address] ?? [facility] [address] [place] [address] ?? [facility] [address] [place] [address] ?? [facility] [address] [place] [address] ? ADDITIONAL RESOURCES ?? Transportation If transportation is a challenge for you, there may be options available at low or no cost. Some organizations, like [employer], help people with transportation through their case management teams. If you are on [employer], you are eligible to have PT-1 transportation to your medical appointments at clinics or doctors??? offices. Call your primary care provider or clinic to ask for help with transportation as soon as possible. ?? Insurance [place] Medicaid ([employer]) will pay for a suboxone prescription. Eligibility for [employer] depends on your income and assets. ?? Applying for [employer]. ?? [facility] [address] [facility], [place] [address] ?? Enrollment Hotline: For more information or to enroll online: https://www.eSellerPro.gov/topics/masshealth. ?? Medicare may pay for some or all of your prescription, depending on the Medicare plan you are signed up for.[1] To be eligible you must be over 65 or have a permanent disability. Medicare Part A/B will cover buprenorphine given in a facility such as a detox or early stabilization program. Medicare Part C/D may have copays that range depending on the plan. For advice and information, speak with a CAMILLEE counselor at your local elder services organization or by calling . ?? [facility] [address] [place] [address], [address] [place], [place]. ?? If you have Private Health Insurance,, you should call the hotline number on the back of your insurance card for more information on coverage and co-pays. ?? If you need to obtain a Photo ID or are having difficulty obtaining Insurance ? [facility] Financial Services (insurance) Can assist with applying for ??insurance [facility] [address] [place], [place] [facility] (To obtain a Photo ID) [address] [place] [address] ? Counseling and Recovery ?? Detox Even if you start buprenorphine from the emergency department, it may be beneficial to go into a formal detox program. For more information on detox placement, please reach out to the [facility] Emergency Department Digital Photographic Printer at [phone]. ?? Outpatient Counseling Resources ?? [facility] ([facility]) - [phone]?? ([phone]) https://[email or web address].[email or web address]/counseling/ Locations: [facility] *Languages: Ethiopian, Belgian, Taiwanese, and Latvian * Outreach therapy available * ?? Clinical Support Options (WAITER/WAITRESS ROOM SERVICE) - [phone] www.csoinc.org Locations: [facility], [place], [place], [place], [place] *Has walk-in appointments* ?? [facility] ([facility]) - [phone] [email or web address]/ Locations: [place] (multiple locations), [facility], [facility] * Belgian-language * Walk-in appointments available * Outreach therapy available * ?? [facility] [phone] [email or web address] Locations: [facility] *Belgian-language * Outreach therapy available * ? Recovery Coaching Programs Recovery Coaches are peer-lead programs where you meet with someone in the community to help you navigate and plan your recovery. Recovery coaches are free and do not require insurance. ? [facility] Recovery and Peer Support [address] [place], [place] [phone]; [phone] [email or web address] ?? [facility] [address] [place], [place] [phone]; [phone] [email or web address] ?? [facility]aching and Case Management Services -Sue Luevano [address] [place] [address] ?? The RECOVER Project - Marilu Negro [address] [place] [phone] www.recoverproject.org ?? [facility] Support [place]?? - Violeta Weston [address] [place], [place] [phone] [email or web address] ?? [facility] [address] [place], [place] [phone]; [email or web address].[facility].[email or web address] ?? [facility] - Saadf Donaldson???[address] Open Tuesday and Tuesday 1:00-4:00 [email or web address] ? Intensive Outpatient Programs Programs that have scheduled meetings, sessions and workshops. Allows patients to still work and complete in daily home activities while also participating in treatment. ? [facility] [address], Marco. [address] [place], [place] [phone] [email or web address] ?? [facility] SOAP Program - Trinidad Tosado [address] [place], [place] [phone] x702 [email or web address] ?? [facility] [address] [place] [address] www.[facility].BloomThat ?? [facility] Program [address] [place] [address] www.[employer] ?? GARRETT Gorman Intensive Outpatient Program [address] [place] [address], [place], [place] [phone] www.[email or web address].org ?? [facility] [address] [place], [place] [phone] www.[facility].org ?? Clinical Support Options www.[facility].org ?? [address], [place], [place] [phone] ?? [address] [place], [place] [phone] ?? [address] [place], [place] [phone] ?? Narcotic Anonymous - www.na.org ? [facility] - [phone] ?? www.wmacna.org ? [facility] - [phone] www.nerna.org ? [facility] - [phone] www.[facility] hospitalAlc Holdings ?? [1] [email or web address]://www.[facility].gov/eseqdbzyqd-bwklwfxs-pbmvnokwt/treatment/insurance-payment s ? Patient Care team information Care Team Personnel Name: Not on Staff, PCP Position: [facility] Physician (General Medicine) Member Role: PCP Name: Fiona Odonnell RN Position: [facility] RN Member Role: Primary Care Nurse Name: Diony Santana RN Position: [facility] RN Member Role: Primary Care Nurse Name: Daniel Parker MD Position: [facility] ED Medicine MD Member Role: Admitting Physician Address: Address: [address] [place] [address] Name: Korina Lopez RN Position: [facility] ED RN W/OE and Tasks Member Role: Patient Care Provider Name: Prudence Cha MD Position: [facility] Resident Member Role: ED Resident Address: Address: [address] [place] [address]
--- OUTSIDE RECORDS SUMMARY | 2022-11-18 00:35 | XMS_ITS | Continuity of Care Document ---
Author Name Unknown Organization [facility] In[facility] Address [address] [place] [address]- Care Team Providers Care Clinical Research Assistant Name Role Phone Not on Staff, PCP Primary Care Physician Unavail able [place] [facility] [place]27/22 [facility] [address] [place] [address]- Discharge Disposition: A-D/C Home Attending Physician: Angela Herrera MD Admitting Physician: Angela Herrera MD Referring Physician: Angela Herrera MD Allergies, Adverse Reactions, Alerts No Known Medication Allergies Medications FLUoxetine 40 mg oral capsule = 40 mg, By Mouth, Daily, # 30 capsule, 0 Refills, Maintenance, 10/26/22 11:23:00 EDT, Capsule, [facility], [place]-, Partial fill upon patient request if the prescription is for a schedule II opioid drug., 168, cm, 10/26/22 11:04:00 ED... Start Date: 10/26/22 Status: Ordered hydrOXYzine hydrochloride 25 mg oral tablet = 25 mg, By Mouth, 3 times a day, PRN Anxiety, # 45 capsule, 1 Refills, Maintenance, 10/26/22 11:24:00 EDT, Tablet, [facility], [place]-, Partial fill upon patient request if the prescription is for a schedule II opioid drug., 168, cm,... Start Date: 10/26/22 Status: Ordered traZODone 100 mg oral tablet 100 mg, By Mouth, Daily at bedtime, # 30 tablet, Refills 0, Tot. Refills 0, Maintenance, 10/26/22 11:22:00 EDT, Route to Pharmacy Electronically, [facility], [place]-, Partial fill upon patient request if the prescription is for a sched... Start Date: 10/26/22 Status: Ordered Problem List Condition Confirmation Course Effective Dates Status Health [facility] Informant Severe obesity Confirmed Active Vital Signs Most recent to oldest [Reference Range]: 1 2 3 Height 168 cm (10/27/22 9:00 AM) 168 cm (10/26/22 4:26 PM) 168 cm (10/26/22 11:04 AM) Weight 118.2 kg (10/18/22 11:09 AM) 113.5 kg (10/18/22:22 AM) 113.5 kg (10/16/22 9:28 PM) Oxygen Saturation [94-100 %] 100 % (10/27/22 9:00 AM) 98 % (10/26/22:26 PM) 100 % (10/26/22 11:04 AM) Pulse Rate [55-90 bpm] 95 bpm *H* (10/27/22 9:00 AM) 104 bpm *H* (10/26/22:26 PM) 97 bpm *H* (10/26/22 11:04 AM) Body Mass Index [18.5-24.99 kg/m2] 41.88 kg/m2 *>HHI* (10/18/22 11:09 AM) 40.21 kg/m2 *>HHI* (10/18/22 9:22 AM) Blood Pressure [90-138/55-84 mm Hg] 144/84mm Hg *H* (10/27/22 9:00 AM) 130/92mm Hg (10/26/22:26 PM) 139/85mm Hg *H* (10/26/22 11:04 AM) Respiratory Rate [16-30 br/min] 16 br/min (10/27/22 9:30 AM) 16 br/min (10/27/22 9:00 AM) 18 br/min (10/26/22:26 PM) Temperature [96.8-100.4 DegF] 98 DegF (10/27/22 9:00 AM) 96.6 DegF *L* (10/26/22 4:26 PM) 98 DegF (10/26/22 11:04 AM) Mode of Delivery (Oxygen) Room air (10/27/22 9:00 AM) Room air (10/26/22 4:26 PM) Room air (10/26/22 11:04 AM) Blood pressure sites Arm, left (10/27/22 9:00 AM) Arm, left (10/26/22 4:26 PM) Arm, left (10/26/22 11:04 AM) Temperature Route Temporal (10/27/22 9:00 AM) Temporal (10/26/22 4:26 PM) Temporal (10/26/22 11:04 AM) Dry Weight 118.2 kg (10/18/22 11:09 AM) 113.5 kg (10/18/22 9:22 AM) 113.5 kg (10/16/22 9:28 PM) Weight Obtained Via Standing scale (10/18/22 11:09 AM) Dry Weight Obtained Via Standing scale (10/18/22 11:09 AM) Social History Social History Type Response Smoking Status 10 or more cigarette s (1/2 pack or more)/day in last 30 days entered on: 12/31/19 Sex Admission evaluation note * Rd Umana MD, Angela Vallecillo: PERFORM, MODIFY Event Display: Admission Note Authored Date: [id number] Patient: ??BELINDA ANNE ? Age:??32 Years?Sex:??Male?:??1990?? Chief Complaint/Reason for Consultation Suicidal History of Present Illness Patient reports that he was recently discharged from [facility] mental health unit and referred to a peer run [facility]. He was disappointed that there was nothing to do at the [facility] and left to hit the streets . He apparently took some hallucinogenic drugs and followed up with ingestingalcohol. He became increasingly depressed and began having thoughts of committing suicide by cutting and presented to the ED. He states a history of depression with three prior suicide attempts. He has overdosed in the past on prescription medications and street drugs. He reports that he is currently in alcohol withdrawal and is experiencing sweating, chills, nausea and headaches. He has had withdrawal seizures in the past. His current psychiatric medications include fluoxetine, trazodone and hydroxyzine. He states these have been helpful to him but that he needs help maintaining his sobriety. He has been on the waiting list for a half way house for several months and is hopeful he can get there soon. He has few social supports and has recently applied for [facility] services; he is hopeful that this will help too. Objective Vital Signs?? Temperature: 97.1 DegF (10/18/22 11:09:00) Temperature Route: Oral (10/18/22 11:09:00) Pulse Rate: 89 bpm (10/18/22 11:09:00) Respiratory Rate: 16 br/min (10/18/22 11:09:00) Systolic Blood Pressure:??145 mm Hg??High (10/18/22 11:09:00) Diastolic Blood Pressure:??92 mm Hg??High (10/18/22 11:09:00) Blood pressure sites: Arm, right (10/18/22 11:09:00) Mean Arterial Pressure: 110 mm Hg (10/18/22 11:09:00) Pulse Pressure: 53 mm Hg (10/18/22 11:09:00) Oxygen Saturation: 95 % (10/18/22 11:09:00) Mode of Delivery (Oxygen): Room air (10/18/22 11:09:00) ? Physical Exam Appearance?? adequately groomed Relatedness?? cooperative Organization?? coherent Though content?? no evidence of psychosis Hallucinations?? denies Mood?? depressed Affect?? anxious Memory? intact Orientation okay Suicidal thinking intermittent thoughts of cutting without active intentions Homicidal thinking?? denies Insight/Judgement?? fair ?? Assessment/Plan Diagnoses ?Major Depression, Alcohol use disorder, alcohol withdrawal ?? Plan: Continue??routine psychiatric medication. Lorazepam taper. Monitor mental status and behavior. Group therapy. aftercare planning. ?? Histories Allergies Allergies ?(Active and Proposed Allergies Only) No Known Medication Allergies? (Severity: Unknown severity, Onset: Unknown) ? Past Medical History/Problem List Active Problems??(1) Severe obesity ? Social History Alcohol Details:??Use: Current. ??Frequency: Daily. Tobacco Details:??Use: 10 or more cigarettes (1/2 pack or more)/day in last 30 days. ? Psychosocial History ??Adopted. Says bio??parents are drug addicts . Adoptive sister is supportive. Adoptive mother is . Currently homeless. ?? Family History No family history recorded. ? Medications Home Medications Fluoxetine (FLUoxetine 40 mg oral capsule)?1?capsule?40?Milligram?By Mouth?Daily HydrOXYzine (hydrOXYzine hydrochloride 25 mg oral tablet)?1?tab(s)?25?Milligram?By Mouth?3 times a day Nicotine (nicotine 14 mg/24 hr transdermal film, extended release)?1?patch(es)?Topically?Daily Nicotine (Nicotine 2 mg gum)?1?Each?2?Milligram?Chew?Every hour?as needed?as needed for smoking cessation Trazodone (traZODone 100 mg oral tablet)?100?Milligram?1?tablet?By Mouth?Daily atbedtime ? Results Recent Labs No labs resulted between 10/17/2022 00:00 and 10/18/2022 12:43? Abnormal Labs No lab data available. ?? Hospital Progress note * Fiona Odonnell RN: PERFORM, MODIFY, SIGN, VERIFY Event Display: Progress Note Hospital Authored Date: [id number] Patient: BELINDA ANNE Age: 32 years Sex: Male : 1990 Associated Diagnoses: None Author: Fiona Odonnell RN Findings Problems Problem 1 : Problem - 1 10/26/2022 9:00 EDT Problem 1 Danger/self - suicidal ideation Goals, Problem 1 Belinda will maintain safety for all shifts. Problem 1, Patient agrees to Attend groups, Demonstrate ability to care for self, Identify 2 strengths, Attend & participate in groups listed on daily group sheets, Demonstrate 1 anxiety reducingskill effective for him/her, Attend unit activities, Safely detoxify from substance, Other: Report to staff if feeling unsafe Problem 1, Nursing Interventions Encourage participation in groups, Offer medication as needed, Provide information about illness and recovery, Provide information about medication Problem 1, Psychiatrist Interventions Evaluate medication Problem 1, Counselor Interventions Encourage participation in groups, Provide information about medication Problem 1, Social Work Interventions Review discharge plans Problem 1, Start Date and Time 10/18/2022 11:57 Reviewed Plan With, Problem 1 Patient Patient Progression, Problem 1 Progressing . Narrative/Incidental Belinda remains safe on unit standard safety checks.This press writer met client at the medroom, he was alert and oriented times3, calm and cooperative with assessment, thought process logical.Client denies suicidal and homicidal ideations, visual and auditory hallucinations.Client denied pain and endorses moderate anxiety and depression.Client vital sign was WNL same charted and he was medication adherent.Client is scheduled for discharge today at 1130pm.Belinda reported good oral intake andnormal bowel movement.Observation continues. At 12PM Client was discharge at 12pm, due care given.. * Ruth LEE, Milton Ramachandran: PERFORM, SIGN, VERIFY Event Display: Progress Note Hospital Authored Date: Patient: BELINDA ANNE Age: 32 years Sex: Male : 1990 Associated Diagnoses: None Author: Ruth LEE, Milton Ramachandran Findings Problems Problem 1 : Problem - 1 10/26/2022 9:00 EDT Problem 1 Danger/self - suicidal ideation Goals, Problem 1 Belinda will maintain safety for all shifts. Problem 1, Patient agrees to Attend groups, Demonstrate ability to care for self, Identify 2 strengths, Attend & participate in groups listed on daily group sheets, Demonstrate 1 anxiety reducingskill effective for him/her, Attend unit activities, Safely detoxify from substance, Other: Report to staff if feeling unsafe Problem 1, Nursing Interventions Encourage participation in groups, Offer medication as needed, Provide information about illness and recovery, Provide information about medication Problem 1, Psychiatrist Interventions Evaluate medication Problem 1, Counselor Interventions Encourage participation in groups, Provide information about medication Problem 1, Social Work Interventions Review discharge plans Problem 1, Start Date and Time 10/18/2022 11:57 Reviewed Plan With, Problem 1 Patient Patient Progression, Problem 1 Progressing . Narrative/Incidental Belinda was in bed resting at the beginning of the shift, breathing evident. He experienced restless sleep and however he remained in bed throughout the night. He appeared to have slept for 5+ hours out of the recorded hours of sleep for the shift. He remained safe on unit standard safety checks. * Star Payton RN: MODIFY, SIGN, VERIFY, PERFORM Event Display: Progress Note Hospital Authored Date: Patient: BELINDA ANNE Age: 32 years Sex: Male : 1990 Associated Diagnoses: None Author: Star Payton RN Findings Problems Problem 1 : Problem - 1 10/26/2022 9:00 EDT Problem 1 Danger/self - suicidal ideation Goals, Problem 1 Belinda will maintain safety for all shifts. Problem 1, Patient agrees to Attend groups, Demonstrate ability to care for self, Identify 2 strengths, Attend & participate in groups listed on daily group sheets, Demonstrate 1 anxiety reducingskill effective for him/her, Attend unit activities, Safely detoxify from substance, Other: Report to staff if feeling unsafe Problem 1, Nursing Interventions Encourage participation in groups, Offer medication as needed, Provide information about illness and recovery, Provide information about medication Problem 1, Psychiatrist Interventions Evaluate medication Problem 1, Counselor Interventions Encourage participation in groups, Provide information about medication Problem 1, Social Work Interventions Review discharge plans . Narrative/Incidental Received Belinda sitting on chair in dining room in no obvious state of distress. Mood alright , affect euthymic, attitude calm and cooperative, speech tone and volume normal. Belinda denies any active hallucinations,delusions. suicidal or homicidal ideations. Dreer denies having any anxiety or depression. Orientated x3, bowel action x1, pain 0/10. Clint ate 100% of meal. Spent most of the evening resting in bed. Self presented for HS meds, medicated with same. Remained safe on unit standard safety checks. . Consult note * Nghia Armstrong NP: PERFORM Event Display: Consultation Note Authored Date: Patient: ??BELINDA ANNE ? Age:??32 Years?Sex:??Male?:??1990?? Chief Complaint/Reason for Consultation Suicidal History of Present Illness This is a 32-year-old male with past medical history of anxiety, depression, alcohol abuse who presents to the emergency department with suicidal ideation.?? He is admitted to mental health unit for psychiatric evaluation.?? He does note some alcohol withdrawal-like symptoms with tremors, sweats, anxiety.?? Also notes sore throat and cough Review of Systems General: Good appetite. Denies fever, chills, sweats. Skin: Denies new rash, sores, lumps. HEENT: Sore throat, sinus congestion.??Denies vision changes, dizziness, headache Cardiac: Denies chest pain?? Vascular: Denies edema Pulmonary: Cough.??Denies SOB, wheeze. GI: Denies abdominal pain, nausea, vomiting, diarrhea, constipation. : Denies dysuria Neurological: Denies weakness, dizziness, syncope. Psych: Appropriate affect and mood. Engages appropriately. All other systems reviewed and negative except as noted in HPI?? Objective Vital Signs?? Temperature: 97.1 DegF (10/18/22 11:09:00) Temperature Route: Oral (10/18/22 11:09:00) Pulse Rate: 89 bpm (10/18/22 11:09:00) Respiratory Rate: 16 br/min (10/18/22 11:09:00) Systolic Blood Pressure:??145 mm Hg??High (10/18/22 11:09:00) Diastolic Blood Pressure:??92 mm Hg??High (10/18/22 11:09:00) Blood pressure sites: Arm, right (10/18/22 11:09:00) Mean Arterial Pressure: 110 mm Hg (10/18/22 11:09:00) Pulse Pressure: 53 mm Hg (10/18/22 11:09:00) Oxygen Saturation: 95 % (10/18/22 11:09:00) Mode of Delivery (Oxygen): Room air (10/18/22 11:09:00) ? Physical Exam General: Lying comfortably in bed. HEENT: Atraumatic, normocephalic. PERRL, EOM grossly intact, nonicteric.?? Neck: Supple, trachea midline. Cardiovascular: S1, S2, no MRG. No edema. Pulmonary: CTAB, no wheeze, no accessory muscle use. Abdomen: Soft, NT, ND, +BS, no rebound tenderness. Extremities: Moves all extremities. Skin: Warm, dry, intact, no rash. Neurological: A&O x3, CN grossly intact. Psychological: Appropriate mood and affect. Assessment/Plan Diagnoses ?? No diagnosis data available. ?? Assessment:??32-year-old male with past medical history of anxiety, depression, alcohol abuse who presents to the emergency department with suicidal ideation. He is admitted to mental health unit forpsychiatric evaluation. He does note some alcohol withdrawal-like symptoms with tremors, sweats, anxiety. Also notes sore throat and cough. ?? Depression, suicidal ideation Per care of primary psychiatric team ?? Alcohol abuse Continue CIWA ?? Cough, sore throat Patient notes cough and sore throat.??Denies any fevers, chills, dyspnea or??any sensations in his chest. Likely viral URI. If symptoms worsen??consider chest x-ray ?? Please contact the medical team with any questions, thank you. Will sign off Histories Allergies Allergies ?(Active and Proposed Allergies Only) No Known Medication Allergies? (Severity: Unknown severity, Onset: Unknown) ? Past Medical History/Problem List Active Problems??(1) Severe obesity ? Past Surgical History No surgery history documented. ? Social History Alcohol Details:??Use: Current. ??Frequency: Daily. Tobacco Details:??Use: 10 or more cigarettes (1/2 pack or more)/day in last 30 days. ? Family History No family history recorded. ? Medications Home Medications Fluoxetine (FLUoxetine 40 mg oral capsule)?1?capsule?40?Milligram?By Mouth?Daily HydrOXYzine (hydrOXYzine hydrochloride 25 mg oral tablet)?1?tab(s)?25?Milligram?By Mouth?3 times a day Nicotine (nicotine 14 mg/24 hr transdermal film, extended release)?1?patch(es)?Topically?Daily Nicotine (Nicotine 2 mg gum)?1?Each?2?Milligram?Chew?Every hour?as needed?as needed for smoking cessation Trazodone (traZODone 100 mg oral tablet)?100?Milligram?1?tablet?By Mouth?Daily atbedtime ? Results Recent Labs No labs resulted between 10/17/2022 00:00 and 10/18/2022 12:19? Note * Rd Umana MD, Angela Vallecillo: MODIFY, PERFORM Event Display: Discharge/Transfer Note Hospital Authored Date: [id number] Patient: ??BELINDA ANNE ? Age:??32 Years?Sex:??Male?:??1990?? Patient Information Discharge Location: U Primary Care Physician: Not on Staff, PCP Admit Date/Time: 10/18/22 11:04 Discharge Disposition Discharge Disposition: ??Homeless skilled nursing Discharge Diagnosis ??Major Depression, Alcohol Dependence _ Discharge Medications Fluoxetine (FLUoxetine 40 mg oral capsule)?40?Milligram?By Mouth?Daily HydrOXYzine (hydrOXYzine hydrochloride 25 mg oral tablet)?25?Milligram?By Mouth?3 timesa day?as needed?Anxiety Trazodone (traZODone 100 mg oral tablet)?100?Milligram?By Mouth?Daily at bedtime ? Quality Measures Tobacco Use Treatment:? Medications Started lorazepam taper Doses Changed none Hospital Course Patient was admitted to Mental Health Unit. He was treated for signs and symptoms of alcohol withdrawal with a lorazepam taper which he tolerated well. He was restarted on his usual regimen of medication. He was initially inactive but later became more engaged. He expressed concern about his alcohol use and noted that he was on a waiting list for a program in the [facility] and said he was in contact with them on a regular basis. He agreed with need for support in the community. He initially agreed to a referral to local Respite but later changed his mind and accepted a bed at a local homeless skilled nursing. Objective Assessment and Plan ? Vital Signs?? Temperature:??96.6 DegF??Low (10/26/22 16:26:00) Temperature Route: Temporal (10/26/22 16:26:00) Pulse Rate:??104 bpm??High (10/26/22 16:26:00) Respiratory Rate: 18 br/min (10/26/22 16:26:00) Systolic Blood Pressure: 130 mm Hg (10/26/22 16:26:00) Diastolic Blood Pressure:??92 mm Hg??High (10/26/22 16:26:00) Blood pressure sites: Arm, left (10/26/22 16:26:00) Mean Arterial Pressure: 105 mm Hg (10/26/22 16:26:00) Pulse Pressure: 38 mm Hg (10/26/22 16:26:00) Oxygen Saturation: 98 % (10/26/22 16:26:00) Mode of Delivery (Oxygen): Room air (10/26/22 16:26:00) ? . Physical Exam Appearance?? neatly groomed Relatedness?? cooperative Organization?? coherent Though content?? no evidence of psychosis Hallucinations?? denies Mood?? anxious Affect?? anxious Memory?? intact Orientation?? okay Suicidal thinking?? denies Homicidal thinking?? denies Insight/Judgement?? air ?? Pending Results COVID-19 (2019 Novel Coronavirus) PCR ordered on 10/25/2022 Home Health Face to Face ^HomeHealthFTF Results Discharge Labs HEME OTHER Hold Lavender Top SPECIMEN DISCARDED AFTER 24 HOURS. ()?? 10/16/2022 22:12 ? MISC. CHEMISTRY Hold Gel Top SPECIMEN DISCARDED AFTER 1 WEEK ()?? 10/16/2022 22:12 ? TOXICOLOGY/TDM Ethanol, Serum or Plasma 184 mg/dL (Abnormal)?? 10/16/2022 22:12 Barbiturate Screen, Urine NONE DETECTED ()?? 10/16/2022 21:28 Cannabinoid Screen, Urine NONE DETECTED ()?? 10/16/2022 21:28 Cocaine Metabolite Screen, Urine POSITIVE (Abnormal)?? 10/16/2022 21:28 Benzodiazepine Screen, Urine NONE DETECTED ()?? 10/16/2022 21:28 Amphetamine Screen, Urine NONE DETECTED ()?? 10/16/2022 21:28 Opiate Screen, Urine NONE DETECTED ()?? 10/16/2022 21:28 ? VIROLOGY COVID-19 PCR Specimen Source NASAL ()?? 10/24/2022 10:12 COVID-19 PCR Result NEGATIVE ()?? 10/24/2022 10:12 ? 25_ minutes spent on discharge * Thalia Crouch: PERFORM Event Display: Discharge/Transfer Note Hospital Authored Date: [id number] Psychiatric Discharge Plan Entered On: 10/27/2022 8:41 EDT Performed On: 10/27/2022 8:34 EDT by Thalia Crouch Discharge Plan Level of Care at Discharge : Home/Family/SelfCare/RestHome/Usp/Sub AbuseTx (AHR) Discharge Plan Additional Information : Michelle mora [phone] Transportation Arranged : Michelle [facility] transpor Arranged Transport Date/Time : 10/27/2022 11:30 EDT Thalia Crouch - 10/27/2022 8:34 EDT [facility] : Michelle Harris [place] [phone] Respite Contact : Lydia Tinsley [phone] Respite Comments : Respite will be picking this pt up around 11:30 Respite Date/Time : 10/27/2022 around 11:30am Thalia Crouch - 10/27/2022 8:34 EDT Other Other Agency : [facility] Other Agency Contact : Yadiel Maldonado [phone] Please fax copy of dc summary to this pt [facility] worker Yadiel Renteriad at [phone] Other Comments : This pt needs to contact Yadiel MONET to complete the sign on for [facility] services. Other Service Start : starts as soon as pt is able to finish signing up. Needs phone call with Rosemarie. Thalia Crouch - 10/27/2022 8:34 EDT Crisis Services Psychiatric Crisis Services : For your area are available 24 hours every day, by calling: Crisis Services : [facility] [phone] Crisis Service Instructions : You are being discharged to [facility]. It is recommended youfollow up with a PCP as soon as you can. Please remain in contact with your [facility] worker Yadiel Maldonado [phone]. You need to contact him Thalia Soto - 10/27/2022 8:34 EDT * Belle LEE, Fiona: PERFORM Event Display: Patient Education/Instruction Authored Date: [id number] Inpatient Adult Discharge Instructions [facility] Inpatient Psychiatry [address] [place] [address] Name: BELINDA ANNE : 1990 Visit: 10/18/2022 11:04:00 Current Date: 10/27/2022 11:19 Account: [id number] Inpatient Adult Discharge Instructions We would like to thank you for allowing us to assist you with your healthcare needs. The following includes patient education materials and information regarding your injury/illness. Our entire staffstrives to provide an excellent experience for our patients and their families. PLEASE ENSURE YOU FOLLOW-UP PER THE INSTRUCTIONS BELOW! ?? YOUR OPINION IS IMPORTANT TO US! Please complete the survey you may receive by mail or email. Your feedback will be used to make improvements to the healthcare experiences of our patients and their families. Surveys are administered by [employer] ?? If further treatment with your primary care physician or another doctor is recommended, it is important for you to keep the appointment. Call your primary care physician or return to the Emergency Department immediately if your condition worsens, fails to improve, or new symptoms develop. If you need to find a doctor, you can call [facility] for a referral at [phone] or toll free at [phone] ([phone]) or log in to [email or web address].. ?? You can view and manage your care through the patient portal or by using a health care shirlene of your choosing. [facility] is a website that allows you to securely view your medical information including your hospital discharge summary, office visit summaries, medications and follow-up visits. You can also request appointments, renew medications, and request access to your medical information using a health care shirlene of your choosing, or just ask a question. You can enroll at [email or web address] or register during your next office visit. You have been discharged from [facility] Inpatient Psychiat[facility], Patient Care Unit: MHU. If you have any questions regarding these instructions after you leave, please call us and we will be happy to assist you. [facility]patient [facility] Your Care Team Attending Physician Angela Herrera MD Discharging Providers Angela Herrera MD Reason for Admission Suicidal Your Diagnosis Safety Tests Performed Below is a partial list of the tests performed during your hospitalization. You may have had other tests and procedures not included in this list. Please discuss all test results with your provider. Alcohol Level Amphetamine Urine Screen Barbiturate Urine Screen Benzodiazepine Urine Screen Cannabinoid Urine Screen Cocaine Urine Screen HOLD GEL TUBE HOLD LAVENDER TUBE Opiate Screen Urine Primary Care Provider Not on Staff, PCP Advance Directive Health Care Proxy on File No Patient refuses to discuss Discharge Vitals Temperature:??96.6 DegF??Low Height: 168 cm Pulse Rate:??104 bpm??High Weight: 118.2 kg Respiratory Rate: 18 br/min Body Mass Index:??41.88 kg/m2??Critical Systolic Blood Pressure: 130 mm Hg Body surface area: 2.35 Diastolic Blood Pressure:??92 mm Hg??High ?? Oxygen Saturation: 98 % ?? Studies Pending All tests and labs ordered during this hospital stay have been completed unless listed below. Please discuss all pending results with your provider listed above in these instructions. ?? COVID-19 (2019 Novel Coronavirus) PCR What to do next Instructions From Your Doctor Discharge Orders Discharge Medications BELINDA ANNE :1990 Visit Date:10/18/2022 Medications: Please continue your medications until treatment is completed or stopped by your provider. Medications not listed below should be discontinued. Discuss any questions related to medications with your provider. What How Much When Instructions Next Dose Changed Fluoxetine (FLUoxetine 40 mg oral capsule) 40 Milligram Oral Daily Pickup at [facility]26441 10/27/22 9am Changed HydrOXYzine (hydrOXYzine hydrochloride 25 mg oral tablet) 25 Milligram Oral 3 times a day as needed for Anxiety Pickup at [id number] 10/27/22 3pm Changed Trazodone (traZODone 100 mg oral tablet) 100 Milligram Oral Daily at Bedtime Pickup at [facility]05830 10/28/22 9pm Pharmacy Information [facility], [place]: [address] [place] [id number] [phone] ?? What How Much When Comments Stop Taking Nicotine (nicotine 14 mg/ 24 hr transdermal film, extended release) 1 patch(es) Topically Daily Stop Taking Nicotine (Nicotine 2 mg gum) 1 Each Chew Every hour as needed for as needed for smoking cessation Test Results Below is a partial list of the most recent Laboratory test results done prior to this discharge. You may have had other tests and procedures not included in this list. Please discuss all test resultswith your provider. Alcohol Level (10/16/2022) ???Ethanol, Serum or Plasma - 184 mg/dL Amphetamine Urine Screen (10/16/2022) ???Amphetamine Screen, Urine - NONE DETECTED Barbiturate Urine Screen (10/16/2022) ???Barbiturate Screen, Urine - NONE DETECTED Benzodiazepine Urine Screen (10/16/2022) ???Benzodiazepine Screen, Urine - NONE DETECTED Cannabinoid Urine Screen (10/16/2022) ???Cannabinoid Screen, Urine - NONE DETECTED Cocaine Urine Screen (10/16/2022) ???Cocaine Metabolite Screen, Urine - POSITIVE HOLD GEL TUBE (10/16/2022) ???Hold Gel Top - SPECIMEN DISCARDED AFTER 1 WEEK HOLD LAVENDER TUBE (10/16/2022) ???Hold Lavender Top - SPECIMEN DISCARDED AFTER 24 HOURS. Opiate Screen Urine (10/16/2022) ???Opiate Screen, Urine - NONE DETECTED Allergies (NKA means No Known Allergies) No Known Medication Allergies Problems Active Problems??(1) Severe obesity?? Education Materials Below is the list of Educational Leaflet Providered with your Discharge Instructions. Valuables and Belongings I fully understand and agree that [facility] accepts no responsibility for all my personal property including clothing, toilet articles, radios, jewelry, dentures, hearing aids, rings, money, or any other property that is in my possession or is brought to me after admission. I understand certain valuables may be placed in a hospital safe for a short period of time. I understand that the hospital is not liable for loss or damage due to accident, fire, or other natural occurrence while said property is in the safe. I accept full responsibility for any personal property that I keep with me, and will not hold the hospital responsible in case of loss or disappearance. I acknowledge that i have been encouraged to send valuables and belongings home. ?? Date for Pt to Sign Valuables/Belongings: 10/18/22 11:06:00 ?? Other Discharge Information ? Pulmonary Rehab Status?? Pulmonary Rehab Discharge Status?? Respiratory Rate: 18 br/min ?? Psychiatric Discharge Plan?? Discharge Plan Psych?? Recovery Homes/Shelters?? Other Agency?? Crisis Services?? Level of Care at Discharge: Home/Family/SelfCare/RestHome/Usp/Sub AbuseTx (A[facility]) Respite: [facility] [address] [place] [phone] Other Agency: [facility] Psychiatric Crisis Services: For your area are available 24 hours every day, by calling: Discharge Plan Additional Information: [facility] [phone] Respite Contact: Lydia Tinsley [phone] Other Agency Contact: Yadiel Maldonado [phone] fax copy of dc summary to this pt [facility] worker Yadiel Maldonado at [phone] Crisis Services: [facility] - [facility] [phone] Transportation Arranged: [facility] transpor Respite Comments: Respite will be picking this pt up around 11:30 Other Comments: This pt needs to contact Yadiel MONET to complete the sign on for [facility] services. Crisis Service Instructions: You are being discharged to [facility]. It is recommended you follow up with a PCP as soon as you can. Please remain in contact with your [facility] worker Yadiel Renteriad at [phone]. You need to contact him CHIKI Arranged Transport Date/Time: 10/27/22 11:30:00 Respite Date/Time: 10/27/2022 around 11:30am Other Service Start: starts as soon as pt is able to finish signing up. Needs phone call with Yadiel Maldonado. ? Common Emergency Awareness Tips IS IT A STROKE? Act FAST and Check for these signs: FACE Does the face look uneven? ARM Does one arm drift down? SPEECH Does their speech sound strange? TIME Call at any sign of stroke ?? Heart Attack Signs Chest discomfort: Most heart attacks involve discomfort in the center of the chest and lasts more than a few minutes, or goes away and comes back. It can feel like uncomfortable pressure, squeezing, fullness or pain. Discomfort in upper body: Symptoms can include pain or discomfort in one or both arms, back, neck, jaw or stomach. Shortness of breath: With or without discomfort. Other signs: Breaking out in a cold sweat, nausea, or lightheaded. Remember, MINUTES DO MATTER. If you experience any of these heart attack warning signs, call to get immediate medical attention! ?? Smoking can increase your chances of developing chronic health problems and can cause harmful effects to other family members in your house. If you smoke, you are strongly encouraged to quit. Please call [facility] Continuity Control Link at [phone] or [phone] BIOPHARMA ([phone]) or log in to [email or web address] for referrals to smoking cessation programs. ?? 031 Suicide & Crisis Lifeline is available 11/10 if you or someone you know needs to find a reason to keep living. By calling 919 you'll be connected to a skilled, trained counselor at a crisis center in your area. INPATIENT DISCHARGE INSTRUCTIONS SIGNATURE PAGE BELINDA ANNE Location:[facility] Inpatient Psychiatry Registration Date and Time:10/18/2022 11:04 EDT Primary Care Physician: Not on Staff, PCP Attending Physician: Angela Herrera MD, I BELINDA ANNE, have received the above patient education materials/instructions and have verbalized understanding. If ambulance or transport services are being used I further acknowledge being given a choice of service. ?? If you need to contact me, please call me at this number: . Patient/Silk Blocker Name: Patient/Silk Blocker Signature: Relationship to Patient: Witness Name/Signature: Date: * Fiona Odonnell RN: PERFORM Event Display: Patient Education/Instruction Authored Date: [id number] Inpatient Adult Discharge Instructions [facility] Inpatient Psychiat[facility] [address] [place] [address] Name: BELINDA ANNE : 1990 Visit: 10/18/2022 11:04:00 Current Date: 10/27/2022 10:54 Account: [id number] Inpatient Adult Discharge Instructions We would like to thank you for allowing us to assist you with your healthcare needs. The following includes patient education materials and information regarding your injury/illness. Our entire staffstrives to provide an excellent experience for our patients and their families. PLEASE ENSURE YOU FOLLOW-UP PER THE INSTRUCTIONS BELOW! ?? YOUR OPINION IS IMPORTANT TO US! Please complete the survey you may receive by mail or email. Your feedback will be used to make improvements to the healthcare experiences of our patients and their families. Surveys are administered by [employer]. ?? If further treatment with your primary care physician or another doctor is recommended, it is important for you to keep the appointment. Call your primary care physician or return to the Emergency Department immediately if your condition worsens, fails to improve, or new symptoms develop. If you need to find a doctor, you can call [facility] for a referral at [phone] or toll free at [phone] ([phone]) or log in to [email or web address].. ?? You can view and manage your care through the patient portal or by using a health care shirlene of your choosing. [facility] is a website that allows you to securely view your medical information including your hospital discharge summary, office visit summaries, medications and follow-up visits. You can also request appointments, renew medications, and request access to your medical information using a health care shirlene of your choosing, or just ask a question. You can enroll at [email or web address] or register during your next office visit. You have been discharged from [facility] Inpatient Psychiat[facility], Patient Care Unit: MHU. If you have any questions regarding these instructions after you leave, please call us and we will be happy to assist you. [facility] Your Care Team Attending Physician Angela Herrera MD Discharging Providers Angela Herrera MD Reason for Admission Suicidal Your Diagnosis Safety Tests Performed Below is a partial list of the tests performed during your hospitalization. You may have had other tests and procedures not included in this list. Please discuss all test results with your provider. Alcohol Level Amphetamine Urine Screen Barbiturate Urine Screen Benzodiazepine Urine Screen Cannabinoid Urine Screen Cocaine Urine Screen HOLD GEL TUBE HOLD LAVENDER TUBE Opiate Screen Urine Primary Care Provider Not on Staff, PCP Advance Directive Health Care Proxy on File No Patient refuses to discuss Discharge Vitals Temperature:??96.6 DegF??Low Height: 168 cm Pulse Rate:??104 bpm??High Weight: 118.2 kg Respiratory Rate: 18 br/min Body Mass Index:??41.88 kg/m2??Critical Systolic Blood Pressure: 130 mm Hg Body surface area: 2.35 Diastolic Blood Pressure:??92 mm Hg??High ?? Oxygen Saturation: 98 % ?? Studies Pending All tests and labs ordered during this hospital stay have been completed unless listed below. Please discuss all pending results with your provider listed above in these instructions. ?? COVID-19 (2019 Novel Coronavirus) PCR What to do next Instructions From Your Doctor Discharge Orders Discharge Medications BELINDA ANNE :1990 Visit Date:10/18/2022 Medications: Please continue your medications until treatment is completed or stopped by your provider. Medications not listed below should be discontinued. Discuss any questions related to medications with your provider. What How Much When Instructions Next Dose Changed Fluoxetine (FLUoxetine 40 mg oral capsule) 40 Milligram Oral Daily Pickup at [facility]10/28/22 Changed HydrOXYzine (hydrOXYzine hydrochloride 25 mg oral tablet) 25 Milligram Oral 3 times a day as needed for Anxiety Pickup at [facility]10/28/22 3 times per day as needed Changed Trazodone (traZODone 100 mg oral tablet) 100 Milligram Oral Daily at Bedtime Pickup at [facility]10/27/22 9pm Pharmacy Information [facility], [place]: [address] [place] [id number] [phone] ?? What How Much When Comments Stop Taking Nicotine (nicotine 14 mg/ 24 hr transdermal film, extended release) 1 patch(es) Topically Daily Stop Taking Nicotine (Nicotine 2 mg gum) 1 Each Chew Every hour as needed for as needed for smoking cessation Test Results Below is a partial list of the most recent Laboratory test results done prior to this discharge. You may have had other tests and procedures not included in this list. Please discuss all test resultswith your provider. Alcohol Level (10/16/2022) ???Ethanol, Serum or Plasma - 184 mg/dL Amphetamine Urine Screen (10/16/2022) ???Amphetamine Screen, Urine - NONE DETECTED Barbiturate Urine Screen (10/16/2022) ???Barbiturate Screen, Urine - NONE DETECTED Benzodiazepine Urine Screen (10/16/2022) ???Benzodiazepine Screen, Urine - NONE DETECTED Cannabinoid Urine Screen (10/16/2022) ???Cannabinoid Screen, Urine - NONE DETECTED Cocaine Urine Screen (10/16/2022) ???Cocaine Metabolite Screen, Urine - POSITIVE HOLD GEL TUBE (10/16/2022) ???Hold Gel Top - SPECIMEN DISCARDED AFTER 1 WEEK HOLD LAVENDER TUBE (10/16/2022) ???Hold Lavender Top - SPECIMEN DISCARDED AFTER 24 HOURS. Opiate Screen Urine (10/16/2022) ???Opiate Screen, Urine - NONE DETECTED Allergies (NKA means No Known Allergies) No Known Medication Allergies Problems Active Problems??(1) Severe obesity?? Education Materials Below is the list of Educational Leaflet Providered with your Discharge Instructions. Valuables and Belongings I fully understand and agree that [facility] accepts no responsibility for all my personal property including clothing, toilet articles, radios, jewelry, dentures, hearing aids, rings, money, or any other property that is in my possession or is brought to me after admission. I understand certain valuables may be placed in a hospital safe for a short period of time. I understand that the hospital is not liable for loss or damage due to accident, fire, or other natural occurrence while said property is in the safe. I accept full responsibility for any personal property that I keep with me, and will not hold the hospital responsible in case of loss or disappearance. I acknowledge that i have been encouraged to send valuables and belongings home. ?? Date for Pt to Sign Valuables/Belongings: 10/18/22 11:06:00 ?? Other Discharge Information ? Pulmonary Rehab Status?? Pulmonary Rehab Discharge Status?? Respiratory Rate: 18 br/min ?? Psychiatric Discharge Plan?? Discharge Plan Psych?? Recovery Homes/Shelters?? Other Agency?? Crisis Services?? Level of Care at Discharge: Home/Family/SelfCare/RestHome/Usp/Sub AbuseTx (A[facility]) Respite: [facility] [address] [place] [phone] Other Agency: [facility] Psychiatric Crisis Services: For your area are available 24 hours every day, by calling: Discharge Plan Additional Information: [facility] [phone] Respite Contact: Lydia Tinsley [phone] Other Agency Contact: Yadiel Maldonado [phone] fax copy of dc summary to this pt [facility] worker Yadiel Joel at [phone] Crisis Services: [place] [facility] - [facility] [phone] Transportation Arranged: [facility] transpor Respite Comments: Respite will be picking this pt up around 11:30 Other Comments: This pt needs to contact Yadiel MONET to complete the sign on for [facility] services. Crisis Service Instructions: You are being discharged to [facility]. It is recommended you follow up with a PCP as soon as you can. Please remain in contact with your [facility] worker Yadiel Maldonado at [phone]. You need to contact him CHIKI Arranged Transport Date/Time: 10/27/22 11:30:00 Respite Date/Time: 10/27/2022 around 11:30am Other Service Start: starts as soon as pt is able to finish signing up. Needs phone call with Yadiel Maldonado. ? Common Emergency Awareness Tips IS IT A STROKE? Act FAST and Check for these signs: FACE Does the face look uneven? ARM Does one arm drift down? SPEECH Does their speech sound strange? TIME Call at any sign of stroke ?? Heart Attack Signs Chest discomfort: Most heart attacks involve discomfort in the center of the chest and lasts more than a few minutes, or goes away and comes back. It can feel like uncomfortable pressure, squeezing, fullness or pain. Discomfort in upper body: Symptoms can include pain or discomfort in one or both arms, back, neck, jaw or stomach. Shortness of breath: With or without discomfort. Other signs: Breaking out in a cold sweat, nausea, or lightheaded. Remember, MINUTES DO MATTER. If you experience any of these heart attack warning signs, call to get immediate medical attention! ?? Smoking can increase your chances of developing chronic health problems and can cause harmful effects to other family members in your house. If you smoke, you are strongly encouraged to quit. Please call [facility] Continuity Control Link at [phone] or 9-245-623-FRLHCP (6775) or log in to [email or web address] for referrals to smoking cessation programs. ?? 259 Suicide & Crisis Lifeline is available 11/10 if you or someone you know needs to find a reason to keep living. By calling 621 you'll be connected to a skilled, trained counselor at a crisis center in your area. INPATIENT DISCHARGE INSTRUCTIONS SIGNATURE PAGE BELINDA ANNE Location:[facility] Inpatient Psychiatry Registration Date and Time:10/18/2022 11:04 EDT Primary Care Physician: Not on Staff, PCP Attending Physician: Rd Umana MD, Angela Vallecillo, I OMIDBELINDA, have received the above patient education materials/instructions and have verbalized understanding. If ambulance or transport services are being used I further acknowledge being given a choice of service. ?? If you need to contact me, please call me at this number: . Patient/Silk Blocker Name: Patient/Silk Blocker Signature: Relationship to Patient: Witness Name/Signature: Date: * Fiona Odonnell RN: PERFORM Event Display: Discharge/Transfer Note Hospital Authored Date: [id number] Psychiatric Discharge Plan Entered On: 10/21/2022 12:36 EDT Performed On: 10/21/2022 12:20 EDT by Elkin Paris Discharge Plan [facility] [phone] Mode of Transportation : Taxi Arranged Transport Date/Time : 10/27/2022 11:59 EDT Belle LEE, Fiona - 10/27/2022 12:19 EDT Level of Care at Discharge : Home/Family/SelfCare/RestHome/Usp/Sub AbuseTx (AHR) Elkin Paris - 10/21/2022 12:20 EDT Discharge Plan Additional Information : Belinda will return home to [place] after discharge.Belinda has a follow up appointment with his psychiatric prescriber at the [facility] and an intake appointment for ongoing therapy. Elkin Paris 10/21/2022 12:37 EDT Clinics Clinic Date/Time : November 09, 2022 at 11:30 am Elkin Paris 10/21/2022 13:11 EDT Clinics : [address] [phone] Elkin Paris 10/21/2022 13:06 EDT Clinic Contact : Aurelia Warren NP (psychiatric prescriber) fax Clinic Comments : Follow up medication management appointment. Belinda should talk with Aurelia at his appointment about being put on a wait list for therapy. Elkin Paris 10/21/2022 13:11 EDT Outpatient Services [facility] : [address] [phone] [facility] Contact : Neela Negro [facility] Comments : Ongoing DM case management. DM Date/Time : As needed. Elkin Paris 10/21/2022 12:50 EDT Crisis Services Crisis Services : Crisis number for the [place] area: or Crisis Service Instructions : Please utilize crisis when needed. Elkin Paris 10/21/2022 12:46 EDT Psychiatric Crisis Services : For your area are available 24 hours every day, by calling: Elkin Paris 10/21/2022 12:20 EDT Patient Care team information Care Team Personnel Name: Not on Staff, PCP Position: [facility] Physician (General Medicine) Member Role: PCP Name: Belle LEE, Fiona Position: [facility] RN Member Role: Primary Care Nurse Name: Diony Santana RN Position: [facility] RN Member Role: Primary Care Nurse Name: Dona Wright Position: [facility] ED OA Charge Member Role: ED Associate Name: Mendoza Pack RN Position: [facility] ED RN W/OE and Tasks Member Role: Patient Care Provider Name: Rosalino Funez MD Position: [facility] ED Medicine MD Address: Address: [address] [place] [address]
[2022-11-18 00:45] LABS: Amphetamine Screen Urine Not Detected (Not Detect); Barbiturates, Urine POSITIVE (Not Detect); Benzodiazepines Screen Urine Not Detected (Not Detect); Cannabinoid Screen Urine Not Detected (Not Detect); Cocaine Screen Urine POSITIVE (Not Detect); Fentanyl, urine Not Detected (Not Detect); Opiate Screen Urine Not Detected (Not Detect); Phencyclidine Screen Urine Not Detected (Not Detect)
[2022-11-18 00:51] LABS: Alanine Aminotransferase 51 U/L (0-40); Albumin Level 4.5 g/dL (3.5-5.0); Alkaline Phosphatase 52 U/L (39-117); Anion Gap 17 (12-20); Aspartate Amino Transferase 42 U/L (5-37); Bilirubin Total 0.5 mg/dL (0.0-1.0); Blood Urea Nitrogen 8 mg/dL (9-16); Carbon Dioxide 23 mmol/L (22-29); Chloride 105 mmol/L (96-108); Creatinine Clr Calc Pharmacy 149.1; Estimated Glomerular Filt Rate > 60; Ethanol 33 mg/dL; Glucose Random 113 mg/dL (60-115); Sodium 141 mmol/L (135-145); Total Protein 7.6 g/dL (6.5-8.0)
[2022-11-18 00:56] LABS: Troponin-I High Sensitivity 11.2 ng/L (<3.5-35.0)
--- NOTE | 2022-11-18 01:09 | ED_ITS ---
HPI - Psych General Chief Complaint: Chest Pain Stated Complaint: si and ETOH Time Seen by Provider: 11/18/22 00:05 Source: patient Mode of arrival: EMS Limitations: no limitations History of Present Illness HPI Narrative: Patient with history of depression, alcohol use been here multiple times for alcohol use and depression with suicidal ideation just admitted on 11/12/2022 for same discharged yesterday 11/17 comes back again after drinking alcohol single he feel depressed and he really got himself released early and he lied to psychiatrist that he is feeling better. Patient is homeless does not have any money or job ran out of money to buy any alcohol no specific plan. Four years ago patient took some extra pills no hallucination or delusion patient also complained of sharp chest pain none at this time at similar pain in the past patient used cocaine earlier Related Data Previous Rx's Medication Instructions Recorded fluoxetine 20 mg capsule 20 mg PO DAILY #30 caps 11/16/22 hydroxyzine HCl 25 mg tablet 25 mg PO Q6H PRN Anxiety #60 tabs 11/16/22 nicotine 7 mg/24 hr daily 7 mg transdermal DAILY #30 ea 11/16/22 transdermal patch trazodone 50 mg tablet 50 mg PO BEDTIME MRX1 PRN Insomnia 11/16/22 #30 tabs Allergies Allergy/AdvReac Type Severity Reaction Status Date / Time No Known Allergies Allergy Verified 11/12/22 00:18 Review of Systems Review of Systems: Yes all other systems are reviewed and are negative COUNTS INCLUDE 234 BEDS AT THE [facility] Past Medical History Medical History Alcohol use disorder, severe, dependence Recurrent major depression-severe Social History Social History Household Members: Friend(s) Housing: Apartment Do you presently have visiting nurse or other home services: No Patient Tobacco Use Status: Current everyday Tobacco user Tobacco use type: Cigarette e-Cigarette/Vaping Use: Never Used Second Hand Smoke Exposure: Yes Substance Use Type: Crack/Cocaine, Marijuana and Other Advance Directives: No Advance Directives Information Provided: No Healthcare Proxy: No Guardian: No service: No Sexual orientation: Straight/Heterosexual Physical Exam Vital Signs: Vital Signs: Last Vital Signs Temp 97.7 F 11/17/22 23:47 Pulse 106 H 11/17/22 23:47 Resp 16 11/18/22 05:42 BP 156/97 H 11/17/22 23:47 Pulse Ox 96 11/17/22 23:47 O2 Del Method Room Air 11/17/22 23:47 BMI result Body Mass Index 43.3 Appearance: Alert. Oriented X3. No acute distress. No EtOH odor Eyes: PERRLA, No Nystagmus ENT: Pharynx normal. Oral Mucosa moist Neck: Normal inspection. Neck supple. CVS: Normal heart rate and rhythm. Pulses normal. Respiratory: No respiratory distress. Equal air entry bilateral, no wheezing/rales/rhonchi Abdomen: Soft and nontender. Bowel sounds are present, no mass palpable, no CVA tenderness Skin: Skin warm and dry. Normal skin color. Normal skin turgor. Extremities: No lower extremity edema. No calf tenderness psych: Mood normal no current SI or HI no hallucination delusion Neuro: Oriented X 3. No motor deficit. No sensory deficit.No cerebellar signs , cranial nerves II-XII intact Medical Decision Making Medical Decision Making [facility] Narrative: Patient with major depression with alcohol use homeless been to the hospital multiple times for alcohol related mood disorder with suicidal ideation was discharged yesterday from upstairs, comes here with the same will get care team involved medically cleared patient U tox showed cocaine positive patient used cocaine last time today earlier at 16:00 2 sets of cardiac enzymes negative Differential Diagnosis Differential Diagnoses: The differential diagnosis associated with the presentation includes Cocaine induced chest pain/depression/alcoholism Admission/Observation Consideration of admission/observation: Escalation of care including admission/observation considered Lab Data [facility] Lab Attestation statement: I reviewed the patient's lab results. 11/18/22 00:25 11/18/22 00:25 Labs: Lab Results 11/18/22 11/18/22 11/18/22 Range/Units 00:25 00:25 00:25 WBC 8.5 (4.8-10.8) X10*3/uL RBC 4.99 (4.60-5.80) X10*6/uL Hgb 14.3 (14.0-18.0) g/dl Hct 41.8 L (42.0-52.0) % MCV 83.8 (80.0-98.0) fL MCH 28.7 (27.0-33.0) pg MCHC 34.2 (31.0-36.0) g/dl RDW 14.4 (11.0-16.0) % Plt Count 247 (160-400) X10*3/uL MPV 9.7 (9.4-12.4) fL Immature Gran % (Auto) 0.2 (0.0-0.4) % Neut % (Auto) 57.8 (45-73) % Lymph % (Auto) 25.0 (20-40) % [place] % (Auto) 16.3 H (2-11) % Eos % (Auto) 0.0 (0-4) % Baso % (Auto) 0.7 (0-2) % Lymph # (Auto) 2.1 (1.2-4.9) X10*3/uL [place] # (Auto) 1.4 H (0.1-1.2) X10*3/uL Eos # (Auto) 0.0 (0.0-0.4) X10*3/uL Baso # (Auto) 0.1 (0.0-0.2) X10*3/uL Abs Immat Gran (auto) 0.02 (0.00-0.03) X10*3/uL Absolute Neuts (auto) 4.9 (2.0-8.3) x10*3/uL Absolute Nucleated RBC 0.000 (0.0-0.012) X10*3/uL Nucleated RBC % (auto) 0.0 (0.0-0.2) /100WBC Sodium 141 (135-145) mmol/L Potassium 4.0 (3.3-5.1) mmol/L Chloride 105 (96-108) mmol/L Carbon Dioxide 23 (22-29) mmol/L Anion Gap 17 (12-20) BUN 8 L (9-16) mg/dL Creatinine 0.83 (0.5-1.4) mg/dL Estim Creat Clear Calc 149.1 Estimated GFR > 60 Random Glucose 113 (60-115) mg/dL Calcium 10.0 D (8.4-10.2) mg/dL Total Bilirubin 0.5 (0.0-1.0) mg/dL AST 42 H (5-37) U/L ALT 51 H (0-40) U/L Alkaline Phosphatase 52 (39-117) U/L Troponin I High Sens 11.2 (<3.5-35.0) ng/L Total Protein 7.6 (6.5-8.0) g/dL Albumin 4.5 (3.5-5.0) g/dL Urine Color Urine Appearance Urine pH (5.0-9.0) Ur Specific [place] (1.005-1.025) Urine Protein (Neg-Trace) mg/dL Urine Glucose (UA) (Negative) mg/dL Urine Ketones (Negative) mg/dL Urine Blood (Negative) Urine Nitrite (Negative) Ur Leukocyte Esterase (Negative) Urine Opiates Screen (Not Detect) Urine Fentanyl Screen (Not Detect) Ur Barbiturates Screen (Not Detect) Ur Phencyclidine Scrn (Not Detect) Ur Amphetamines Screen (Not Detect) U Benzodiazepines Scrn (Not Detect) Urine Cocaine Screen (Not Detect) U Marijuana (THC) Screen (Not Detect) Ethyl Alcohol 33 mg/dL 11/18/22 11/18/22 11/18/22 Range/Units 00:25 00:25 03:14 WBC (4.8-10.8) X10*3/uL RBC (4.60-5.80) X10*6/uL Hgb (14.0-18.0) g/dl Hct (42.0-52.0) % MCV (80.0-98.0) fL MCH (27.0-33.0) pg MCHC (31.0-36.0) g/dl RDW (11.0-16.0) % Plt Count (160-400) X10*3/uL MPV (9.4-12.4) fL Immature Gran % (Auto) (0.0-0.4) % Neut % (Auto) (45-73) % Lymph % (Auto) (20-40) % [place] % (Auto) (2-11) % Eos % (Auto) (0-4) % Baso % (Auto) (0-2) % Lymph # (Auto) (1.2-4.9) X10*3/uL [place] # (Auto) (0.1-1.2) X10*3/uL Eos # (Auto) (0.0-0.4) X10*3/uL Baso # (Auto) (0.0-0.2) X10*3/uL Abs Immat Gran (auto) (0.00-0.03) X10*3/uL Absolute Neuts (auto) (2.0-8.3) x10*3/uL Absolute Nucleated RBC (0.0-0.012) X10*3/uL Nucleated RBC % (auto) (0.0-0.2) /100WBC Sodium (135-145) mmol/L Potassium (3.3-5.1) mmol/L Chloride (96-108) mmol/L Carbon Dioxide (22-29) mmol/L Anion Gap (12-20) BUN (9-16) mg/dL Creatinine (0.5-1.4) mg/dL Estim Creat Clear Calc Estimated GFR Random Glucose (60-115) mg/dL Calcium (8.4-10.2) mg/dL Total Bilirubin (0.0-1.0) mg/dL AST (5-37) U/L ALT (0-40) U/L Alkaline Phosphatase (39-117) U/L Troponin I High Sens 8.8 (<3.5-35.0) ng/L Total Protein (6.5-8.0) g/dL Albumin (3.5-5.0) g/dL Urine Color Yellow Urine Appearance Clear Urine pH 6.5 (5.0-9.0) Ur Specific [place] 1.020 (1.005-1.025) Urine Protein Negative (Neg-Trace) mg/dL Urine Glucose (UA) Negative (Negative) mg/dL Urine Ketones Negative (Negative) mg/dL Urine Blood Negative (Negative) Urine Nitrite Negative (Negative) Ur Leukocyte Esterase Negative (Negative) Urine Opiates Screen Not Detected (Not Detect) Urine Fentanyl Screen Not Detected (Not Detect) Ur Barbiturates Screen POSITIVE H (Not Detect) Ur Phencyclidine Scrn Not Detected (Not Detect) Ur Amphetamines Screen Not Detected (Not Detect) U Benzodiazepines Scrn Not Detected (Not Detect) Urine Cocaine Screen POSITIVE H (Not Detect) U Marijuana (THC) Screen Not Detected (Not Detect) Ethyl Alcohol mg/dL Independent Interpretation I performed an independent interpretation of an: EKG Interpretation: Normal sinus rhythm heart rate 100 beats per minute no acute ST-T changes no acute ischemia Discharge Plan Discharge Clinical Impression: Recurrent major depression-severe, Alcohol use disorder, severe, dependence, Atypical chest pain, Polysubstance abuse Patient Disposition: Still a Patient Prescriptions: No Action trazodone 50 mg Tablet 50 mg PO BEDTIME MRX1 PRN (Reason: Insomnia) Qty: 30 0RF hydroxyzine HCl 25 mg Tablet 25 mg PO Q6H PRN (Reason: Anxiety) Qty: 60 0RF fluoxetine 20 mg Capsule 20 mg PO DAILY Qty: 30 0RF nicotine 7 mg/24 hr Patch 24 Hour 7 mg transdermal DAILY Qty: 30 0RF
[2022-11-18 03:41] LABS: Troponin-I High Sensitivity 8.8 ng/L (<3.5-35.0)
[2022-11-18 05:42] VITALS: RESP 16
--- NOTE | 2022-11-18 05:46 | PC.NURSE ---
Patient slept intermittently, no distress observed/reported, report no chest pain, labs completed/resulted/unremarkable, med rec competed/pending provider's approval, patient got assessed by care team disposition is section-12 inpatient bed search, VSS, will continue to monitor.
[2022-11-18] MEDS: Nicotine 7 MG PATCH.TD24 TRANSDERMA (09:11)
[2022-11-18] MEDS: FLUoxetine HCl 20 MG CAPSULE PO (09:11)
[2022-11-18 10:03] LABS: COVID-19 Test Negative (Negative); IDNOW Serial# 08D9AD1C
--- NOTE | 2022-11-18 13:04 | PC.NURSE ---
behavior non-concerning, pt ate lunch, will ctm
--- NOTE | 2022-11-18 13:51 | MHC.CARE ---
faxed ACCS review to [facility]. Awaiting their review.
[2022-11-18 17:58] VITALS: BP 145/91; PULSE 78; RESP 18; TEMP 36.2; O2SAT 95
--- NOTE | 2022-11-18 18:51 | MHC.CARE ---
No bed available tonight at [facility]. F/u in am
[2022-11-18] MEDS: hydrOXYzine HCL 25 MG TABLET PO (19:33)
[2022-11-19 00:13] VITALS: BP 143/84; PULSE 77; RESP 15; TEMP 36.1; O2SAT 96
[2022-11-19] MEDS: traZODone HCL 50 MG TABLET PO (00:23)
--- NOTE | 2022-11-19 05:48 | PC.NURSE ---
Patient slept through the night, no distress observed/reported, behavior non concerning, patient disposition was changed from inpatient bed search to voluntary respite bed search, VSS, medication compliant, labs completed/resulted, VSS, will continue to monitor.
[2022-11-19] MEDS: FLUoxetine HCl 20 MG CAPSULE PO (08:37)
[2022-11-19 08:46] VITALS: BP 152/102; PULSE 72; RESP 12; TEMP 36.1; O2SAT 95
--- NOTE | 2022-11-19 09:42 | PC.NURSE ---
Pt up and awake briefly for medication administration professional. Calm, cooperative. Declines Nicotine patch this AM. back to sleep at this time
--- NOTE | 2022-11-19 10:11 | MHC.CARE ---
patient tentatively accepted to [facility], pending the anticipated d/c of another patient.
== END 2022-11-19 13:23 ==
PROVIDERS: Emergency Provider Internal Medicine
DX: F33.2 Major depressive disorder, recurrent severe without psychotic features (principal); F10.24 Alcohol dependence with alcohol-induced mood disorder; Y90.1 Blood alcohol level of 20-39 mg/100 ml; R07.89 Other chest pain; R45.851 Suicidal ideations; F19.10 Other psychoactive substance abuse, uncomplicated; F17.210 Nicotine dependence, cigarettes, uncomplicated; Z79.899 Other long term (current) drug therapy
CPT/HCPCS: 36415; 80053; 80307; 81003; 84484; 85025; 87635; 93005; 99285; S9485

== ENCOUNTER 2023-03-02 22:40 | Emergency (ER) | payer OTHER, SELFPAY ==
[2023-03-02 22:49] VITALS: BP 131/88; BP 151/104; PULSE 110; PULSE 111; RESP 18; TEMP 36.5; O2SAT 95; O2SAT 96; BMI 43.3
--- NOTE | 2023-03-02 23:05 | PC.NURSE ---
clarification with addl questions, patient stated he was in aftercare program and messed up used etoh cocaine and heroin in last 24 hrs, stated he had idea to walk into traffic and called 911. states he's 2nd in the list for [facility] and only on meds for anxiety and depression. stated doesnt know his pharmacy
[2023-03-02 23:23] LABS: MANUAL DIFF FLAG NO
[2023-03-02 23:25] LABS: Basophils Absolute Auto 0.1 X10*3/uL (0.0-0.2); Basophils Percent Auto 0.5 % (0-2); Hematocrit 44.2 % (42.0-52.0); Hemoglobin 15.1 g/dl (14.0-18.0); Imm Gran Abs Auto 0.03 X10*3/uL (0.00-0.03); Imm Gran Pct Auto 0.2 % (0.0-0.4); Lymphocytes Absolute Auto 2.2 X10*3/uL (1.2-4.9); Mean Corpuscular HGB Conc 34.2 g/dl (31.0-36.0); Mean Corpuscular Hemoglobin 28.2 pg (27.0-33.0); Mean Corpuscular Volume 82.6 fL (80.0-98.0); Mean Platelet Volume 10.1 fL (9.4-12.4); Monocytes Absolute Auto 1.1 X10*3/uL (0.1-1.2); Monocytes Percent Auto 8.9 % (2-11); Neutrophils Absolute Auto 8.9 x10*3/uL (2.0-8.3); Neutrophils Percent Auto 72.4 % (45-73); Platelet Count 269 X10*3/uL (160-400); Red Blood Count 5.35 X10*6/uL (4.60-5.80); Red Cell Distribution Width 13.8 % (11.0-16.0); White Blood Count 12.4 X10*3/uL (4.8-10.8)
[2023-03-02 23:29] LABS: Appearance Urine Turbid; Color Urine Yellow; Glucose Urine UA Negative (Negative); Leukocyte Esterase Urine Negative (Negative); Nitrite Urine Negative (Negative); Specific Gravity - Urine >= 1.030 (1.005-1.025); UMIC TRIGGER UACC YES; Urine Blood Negative (Negative); Urine Ketones 15 mg/dL (Negative); Urine Protein 30 (1+) mg/dL (Neg-Trace)
[2023-03-02 23:36] LABS: Amphetamine Screen Urine Not Detected (Not Detect); Barbiturates, Urine Not Detected (Not Detect); Benzodiazepines Screen Urine Not Detected (Not Detect); Cannabinoid Screen Urine Not Detected (Not Detect); Cocaine Screen Urine POSITIVE (Not Detect); Fentanyl, urine POSITIVE (Not Detect); Opiate Screen Urine Not Detected (Not Detect); Phencyclidine Screen Urine Not Detected (Not Detect)
[2023-03-02 23:42] LABS: Ethanol 12 mg/dL
[2023-03-02 23:46] LABS: Alanine Aminotransferase 26 U/L (0-40); Albumin Level 4.7 g/dL (3.5-5.0); Alkaline Phosphatase 56 U/L (39-117); Anion Gap 20 (12-20); Aspartate Amino Transferase 40 U/L (5-37); Bilirubin Total 1.4 mg/dL (0.0-1.0); Blood Urea Nitrogen 14 mg/dL (9-16); Calcium 9.3 mg/dL (8.4-10.2); Carbon Dioxide 21 mmol/L (22-29); Chloride 101 mmol/L (96-108); Estimated Glomerular Filt Rate > 60; Glucose Random 98 mg/dL (60-115); Potassium 4.2 mmol/L (3.3-5.1); Sodium 138 mmol/L (135-145); Total Protein 8.1 g/dL (6.5-8.0)
[2023-03-02 23:47] LABS: Bacteria Urine None Seen (None Seen); Other Crystals Urine Present; RBC Urine 0-2 /HPF (0-2); WBC Urine 0-5 /HPF (0-5)
[2023-03-02 23:50] LABS: Acetaminophen LAB < 3 mcg/mL (<30); Salicylate < 5.0 mg/dL (15-30)
[2023-03-03 00:02] LABS: COVID-19 Test Negative (Negative); IDNOW Serial# 08D9AD1C
--- NOTE | 2023-03-03 00:38 | ED_ITS ---
HPI - Psych General Chief Complaint: Psychiatric Symptoms Stated Complaint: SI ETOH Time Seen by Provider: 03/02/23 22:51 Source: patient Mode of arrival: ambulatory Limitations: no limitations History of Present Illness HPI Narrative: Patient's history of substance abuse drinks alcohol takes heroin and cocaine been to detox multiple times section 35 himself and stayed in detox for 80 days discharged yesterday and started using drugs and alcohol again patient been to detox at least 4 times in the past with similar situation the movement patient comes out of the Section 35 start drinking and start using substance with the same feeling of guilt suicidal ideation as today as in the past patient felt like killing himself without any significant plan asking for detox again this time patient is homeless for last few years Related Data Previous Rx's Medication Instructions Recorded fluoxetine 20 mg capsule 20 mg PO DAILY #30 caps 11/16/22 hydroxyzine HCl 25 mg tablet 25 mg PO Q6H PRN Anxiety #60 tabs 11/16/22 nicotine 7 mg/24 hr daily 7 mg transdermal DAILY #30 ea 11/16/22 transdermal patch trazodone 50 mg tablet 50 mg PO BEDTIME MRX1 PRN Insomnia 11/16/22 #30 tabs fluoxetine 20 mg capsule 20 mg PO DAILY #30 caps 11/19/22 hydroxyzine HCl 25 mg tablet 25 mg PO Q6H PRN anxiety #60 tabs 11/19/22 trazodone 50 mg tablet 50 mg PO BEDTIME PRN sleep #30 tabs 11/19/22 Allergies Allergy/AdvReac Type Severity Reaction Status Date / Time No Known Allergies Allergy Verified 11/12/22 00:18 Review of Systems 2 Review of Systems: Yes all other systems are reviewed and are negative [facility]LY [facility], [facility] Past Medical History Medical History Alcohol use disorder, severe, dependence Recurrent major depression-severe Social History Social History Household Members: Friend(s) Housing: Apartment Do you presently have visiting nurse or other home services: No Patient Tobacco Use Status: Current everyday Tobacco user Tobacco use type: Cigarette e-Cigarette/Vaping Use: Never Used Second Hand Smoke Exposure: Yes Substance Use Type: Crack/Cocaine, Marijuana and Other Advance Directives: No Advance Directives Information Provided: No service: No Sexual orientation: Straight/Heterosexual Physical Exam 2 Vital Signs: Vital Signs: Last Vital Signs Temp 97.8 F 03/03/23 01:33 Pulse 100 03/03/23 01:33 Resp 17 03/03/23 01:33 BP 135/81 03/03/23 01:33 Pulse Ox 95 03/03/23 01:33 O2 Del Method Room Air 03/03/23 01:33 BMI result Body Mass Index 43.3 Appearance: Alert. Oriented X3. No acute distress. Eyes: PERRLA, No Nystagmus ENT: Pharynx normal. Oral Mucosa moist Neck: Normal inspection. Neck supple. CVS: Normal heart rate and rhythm. Pulses normal. Respiratory: No respiratory distress. Equal air entry bilateral, no wheezing/rales/rhonchi Abdomen: Soft and nontender. Bowel sounds are present, no mass palpable, no CVA tenderness Skin: Skin warm and dry. Normal skin color. Normal skin turgor. Extremities: No lower extremity edema. No calf tenderness psych: Denied any current SI at this time no hallucination or delusions mood stable Neuro: Oriented X 3. No motor deficit. No sensory deficit.No cerebellar signs , cranial nerves II-XII intact Medical Decision Making Medical Decision Making MDM Narrative: Will consult care team for detox placement and depressed Lab Data [facility] Lab Attestation statement: I reviewed the patient's lab results. 03/02/23 23:14 03/02/23 23:14 Labs: Lab Results 03/02/23 03/02/23 03/02/23 Range/Units 23:14 23:15 23:16 WBC 12.4 H (4.8-10.8) X10*3/uL RBC 5.35 (4.60-5.80) X10*6/uL Hgb 15.1 (14.0-18.0) g/dl Hct 44.2 (42.0-52.0) % MCV 82.6 (80.0-98.0) fL MCH 28.2 (27.0-33.0) pg MCHC 34.2 (31.0-36.0) g/dl RDW 13.8 (11.0-16.0) % Plt Count 269 (160-400) X10*3/uL MPV 10.1 (9.4-12.4) fL Immature Gran % (Auto) 0.2 (0.0-0.4) % Neut % (Auto) 72.4 (45-73) % Lymph % (Auto) 18.0 L (20-40) % [place] % (Auto) 8.9 (2-11) % Eos % (Auto) 0.0 (0-4) % Baso % (Auto) 0.5 (0-2) % Lymph # (Auto) 2.2 (1.2-4.9) X10*3/uL [place] # (Auto) 1.1 (0.1-1.2) X10*3/uL Eos # (Auto) 0.0 (0.0-0.4) X10*3/uL Baso # (Auto) 0.1 (0.0-0.2) X10*3/uL Abs Immat Gran (auto) 0.03 (0.00-0.03) X10*3/uL Absolute Neuts (auto) 8.9 H (2.0-8.3) x10*3/uL Absolute Nucleated RBC 0.000 (0.0-0.012) X10*3/uL Nucleated RBC % (auto) 0.0 (0.0-0.2) /100WBC Sodium 138 (135-145) mmol/L Potassium 4.2 (3.3-5.1) mmol/L Chloride 101 (96-108) mmol/L Carbon Dioxide 21 L (22-29) mmol/L Anion Gap 20 (12-20) BUN 14 (9-16) mg/dL Creatinine 0.93 (0.5-1.4) mg/dL Estim Creat Clear Calc 133.0 Estimated GFR > 60 Random Glucose 98 (60-115) mg/dL Calcium 9.3 D (8.4-10.2) mg/dL Total Bilirubin 1.4 H (0.0-1.0) mg/dL AST 40 H (5-37) U/L ALT 26 (0-40) U/L Alkaline Phosphatase 56 (39-117) U/L Total Protein 8.1 H (6.5-8.0) g/dL Albumin 4.7 (3.5-5.0) g/dL Urine Color Yellow Urine Appearance Turbid Urine pH 5.0 (5.0-9.0) Ur Specific [place] >= 1.030 H (1.005-1.025) Urine Protein 30 (1+) H (Neg-Trace) mg/dL Urine Glucose (UA) Negative (Negative) mg/dL Urine Ketones 15 (Negative) mg/dL Urine Blood Negative (Negative) Urine Nitrite Negative (Negative) Ur Leukocyte Esterase Negative (Negative) Urine RBC 0-2 (0-2) /HPF Urine WBC 0-5 (0-5) /HPF Ur Squamous Epith Cells 3-5 (0-2) /HPF Other Crystals Present Urine Bacteria None Seen (None Seen) Hyaline Casts 3-5 (0-2) /LPF Salicylates < 5.0 L (15-30) mg/dL Urine Opiates Screen Not Detected (Not Detect) Urine Fentanyl Screen POSITIVE H (Not Detect) Acetaminophen < 3 (<30) mcg/mL Ur Barbiturates Screen Not Detected (Not Detect) Ur Phencyclidine Scrn Not Detected (Not Detect) Ur Amphetamines Screen Not Detected (Not Detect) U Benzodiazepines Scrn Not Detected (Not Detect) Urine Cocaine Screen POSITIVE H (Not Detect) U Marijuana (THC) Screen Not Detected (Not Detect) Ethyl Alcohol 12 mg/dL COVID-19 ([facility]) Negative (Negative) COVID-19 Clin Com See Note Discharge Plan Discharge Clinical Impression: Polysubstance abuse, Depression Patient Disposition: Still a Patient Prescriptions: No Action trazodone 50 mg Tablet 50 mg PO BEDTIME MRX1 PRN (Reason: Insomnia) Qty: 30 0RF hydroxyzine HCl 25 mg Tablet 25 mg PO Q6H PRN (Reason: Anxiety) Qty: 60 0RF fluoxetine 20 mg Capsule 20 mg PO DAILY Qty: 30 0RF nicotine 7 mg/24 hr Patch 24 Hour 7 mg transdermal DAILY Qty: 30 0RF fluoxetine 20 mg capsule 20 mg PO DAILY Qty: 30 0RF hydroxyzine HCl 25 mg tablet 25 mg PO Q6H PRN (Reason: anxiety) Qty: 60 0RF trazodone 50 mg tablet 50 mg PO BEDTIME PRN (Reason: sleep) Qty: 30 0RF Interventions: [place]-Suicide Risk Severity Scale Last Done: 03/02/23 23:08
[2023-03-03 01:33] VITALS: BP 135/81; PULSE 100; RESP 17; TEMP 36.6; O2SAT 95
[2023-03-03 11:45] VITALS: RESP 18
--- NOTE | 2023-03-03 12:05 | MHC.RECOVSUP ---
Met with pt in [facility] who is here for psychiatric and [place]. Pt reports being sober for 78 days before lapsing for 2 days on an unclear amount of heroin and alcohol. Pt infoms he would like treatment but wants more than ATS and would prefer to section himself and is requesting to be sent to the court house. Pt has no other questions or concerns at this time and Lyft is ordered for pt.
--- NOTE | 2023-03-03 12:22 | PC.NURSE ---
Rodo was in his bed resting for most of the shift. He was pleasant when engaged with a good appetite. Denies SI/HI/AVH. Advocating to D/C to court to self present for a section 35. PT discharged at 1225 to a LYFT.
== END 2023-03-03 12:26 | disposition home or self-care (01) ==
PROVIDERS: Emergency Provider Internal Medicine; PCP Registered Nurse
DX: F19.10 Other psychoactive substance abuse, uncomplicated (principal); F33.2 Major depressive disorder, recurrent severe without psychotic features; R45.851 Suicidal ideations; F10.20 Alcohol dependence, uncomplicated; Y90.0 Blood alcohol level of less than 20 mg/100 ml; F17.210 Nicotine dependence, cigarettes, uncomplicated; Z79.899 Other long term (current) drug therapy; Z11.52 Encounter for screening for COVID-19
CPT/HCPCS: 36415; 80053; 80143; 80179; 80307; 81001; 85025; 87635; 99284; S9485

== ENCOUNTER 2023-03-24 03:38 | Emergency (ER) | payer OTHER, SELFPAY ==
[2023-03-24 03:40] VITALS: BP 145/85; PULSE 117; RESP 20; TEMP 36.9; O2SAT 94; BMI 43.3
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
[2023-03-24 06:44] VITALS: BP 145/85; PULSE 117; RESP 20; TEMP 36.9
--- NOTE | 2023-03-24 07:01 | PC.NURSE ---
Pt presenting for suicidal ideation. DC'd from [facility] this am, given bus ticket to go to [place] to [facility], had layover and decided to drink ETOH (2 pints), used cocaine (10 lines) and is presenting to speak to crisis. Endorsing suicidal ideation with plan to get hit by train/car. PT changed over, belonging secured, med rec completed, labs drawn in triage. Urine still needed. plan of care ongoing
[2023-03-24 08:17] VITALS: BP 138/88; PULSE 108; RESP 18; TEMP 36.5; O2SAT 96
--- NOTE | 2023-03-24 12:33 | MHC.CARE ---
Pt info faxed to [facility] for dual diagnosis bed today 03/24/23 @ 12:30 PM
--- NOTE | 2023-03-24 13:20 | PHA.MEDREC ---
Pharmacy Consult ? Medication Reconciliation Pharmacy has reviewed the medication reconciliation completed by Pratima. Shaila Garcia, PharmD
--- NOTE | 2023-03-24 13:35 | MHC.CARE ---
Patient was accepted to [facility] as soon a possible accepting doctor is Dr. Harris Khadijah [address] [address]
[2023-03-24 13:57] VITALS: RESP 18
--- NOTE | 2023-03-24 14:00 | PC.NURSE ---
Rodo was in his room for most of this shift. Adherent with medications and no behavioral concerns. Appetite good. Rovertoseng endorses some depression and vague SI, no plan. Will be transferred to [facility] in [place].
[2023-03-24 14:08] VITALS: RESP 18
== END 2023-03-24 18:47 | disposition other institution (70) ==
PROVIDERS: Emergency Provider Internal Medicine; PCP Registered Nurse
DX: R45.851 Suicidal ideations (principal); F33.2 Major depressive disorder, recurrent severe without psychotic features; F19.10 Other psychoactive substance abuse, uncomplicated; Z11.52 Encounter for screening for COVID-19; F10.20 Alcohol dependence, uncomplicated; Y90.6 Blood alcohol level of 120-199 mg/100 ml; R00.0 Tachycardia, unspecified; F17.210 Nicotine dependence, cigarettes, uncomplicated; Z79.899 Other long term (current) drug therapy
CPT/HCPCS: 80053; 80307; 81003; 85025; 87635; 93005; 99284; 99285; S9485

== ENCOUNTER → 2023-03-24 03:52 | Outpatient (BNV) | payer OTHER, SELFPAY | PROVIDERS: Emergency Provider Internal Medicine; PCP Registered Nurse; Visit Provider Internal Medicine Cardiovascular Disease | DX: R00.0 Tachycardia, unspecified (principal) | CPT/HCPCS: 93010 ==